=== PATIENT | female | born 1950 | race Caucasian/White ===

== ENCOUNTER 2020-04-09 09:42 | Outpatient (CLI) | payer MEDICARE, SELFPAY ==
[2020-04-09 09:54] LABS: Basophils Percent Auto 0.5 % (0.2-1.2); Eosinophils Absolute Auto 0.1 K/mm3 (0-0.3); Eosinophils Percent Auto 2.1 % (0-4.4); Hematocrit 41.4 % (37.0-47.0); Hemoglobin 13.4 g/dL (12.0-15.0); Immature Granulocyte Absolute 0.03 K/mm3 (0.00-0.031); Immature Granulocyte Percent A 0.5 % (0-0.5); Lymphocytes Absolute Auto 1.27 K/mm3 (0.9-3.2); Lymphocytes Percent Auto 19.4 % (18.3-44.2); Mean Corpuscular HGB Conc 32.4 g/dl (32-36); Mean Corpuscular Volume 92.6 fl (80-100); Mean Platelet Volume 10.2 fl (7.4-10.4); Monocytes Absolute Auto 0.6 K/mm3 (0.1-0.6); Monocytes Percent Auto 8.9 % (2.6-8.5); Neutrophils Absolute Auto 4.5 K/mm3 (1.3-6.7); Neutrophils Percent Auto 68.6 % (45.5-73.1); Platelet Count Result 264 k/mm3 (150-375); Red Blood Count 4.47 M/mm3 (4.2-5.4); Red Cell Distribution Width 13.1 % (11.5-14.5); White Blood Count 6.5 K/mm3 (4.5-10.0)
[2020-04-09 09:57] LABS: Blood Urea Nitrogen 13 mg/dL (8-26); Carbon Dioxide 30 mmol/L (22-30); Chloride 99 mmol/L (98-109); Estimated Glomerular Filt Rate > 60; Glucose 81 mg/dL (70-105); Potassium 4.3 mmol/L (3.5-4.9); Sodium 137 mmol/L (138-146)
[2020-04-09 11:31] LABS: Alanine Aminotransferase 39 U/L (4-35); Albumin Level 4.1 g/dL (3.5-5.1); Alkaline Phosphatase 80 U/L (38-126); Aspartate Amino Transferase 37 U/L (14-36); Bilirubin,Total 0.3 mg/dL (0.2-1.3); Blood Urea Nitrogen 13 mg/dL (7-17); Calcium 9.4 mg/dL (8.4-10.2); Carbon Dioxide 29 mmol/L (22-30); Chloride 101 mmol/L (98-107); Estimated Glomerular Filt Rate > 60; Glucose 79 mg/dL (65-105); Potassium 4.5 mmol/L (3.4-5.0); Sodium 136 mmol/L (137-145)
== END 2020-04-09 09:43 | disposition home or self-care (01) ==
LOC: ANHLAB 09:45
PROVIDERS: Visit Provider Internal Medicine Hematology & Oncology
DX: C50.912 Malignant neoplasm of unspecified site of left female breast (principal)
CPT/HCPCS: 36415; 80048; 80053; 85025

== ENCOUNTER 2020-07-09 11:03 | Outpatient (CLI) | payer MEDICARE, SELFPAY ==
[2020-07-09 11:21] LABS: Basophils Percent Auto 0.5 % (0.2-1.2); Eosinophils Absolute Auto 0.1 K/mm3 (0-0.3); Eosinophils Percent Auto 2.2 % (0-4.4); Hematocrit 40.1 % (37.0-47.0); Hemoglobin 13.3 g/dL (12.0-15.0); Immature Granulocyte Absolute 0.03 K/mm3 (0.00-0.031); Immature Granulocyte Percent A 0.5 % (0-0.5); Lymphocytes Absolute Auto 1.05 K/mm3 (0.9-3.2); Lymphocytes Percent Auto 16.5 % (18.3-44.2); Mean Corpuscular HGB Conc 33.2 g/dl (32-36); Mean Corpuscular Hemoglobin 30.4 pg (26-34); Mean Corpuscular Volume 91.8 fl (80-100); Mean Platelet Volume 9.7 fl (7.4-10.4); Monocytes Absolute Auto 0.5 K/mm3 (0.1-0.6); Monocytes Percent Auto 7.5 % (2.6-8.5); Neutrophils Absolute Auto 4.6 K/mm3 (1.3-6.7); Neutrophils Percent Auto 72.8 % (45.5-73.1); Platelet Count Result 249 k/mm3 (150-375); Red Blood Count 4.37 M/mm3 (4.2-5.4); Red Cell Distribution Width 12.4 % (11.5-14.5); White Blood Count 6.4 K/mm3 (4.5-10.0)
[2020-07-09 12:24] LABS: Alanine Aminotransferase 18 U/L (4-35); Albumin Level 4.2 g/dL (3.5-5.1); Alkaline Phosphatase 71 U/L (38-126); Anion Gap 8 mmol/L (8-16); Aspartate Amino Transferase 28 U/L (14-36); Bilirubin,Total 0.2 mg/dL (0.2-1.3); Blood Urea Nitrogen 13 mg/dL (7-17); Calcium 9.6 mg/dL (8.4-10.2); Carbon Dioxide 29 mmol/L (22-30); Chloride 99 mmol/L (98-107); Estimated Glomerular Filt Rate > 60; Glucose 61 mg/dL (65-105); Potassium 4.8 mmol/L (3.4-5.0); Sodium 136 mmol/L (137-145)
[2020-07-12 06:09] LABS: CA 27.29 11 U/mL (<38)
== END 2020-07-09 11:04 | disposition home or self-care (01) ==
LOC: ANHLAB 11:06
PROVIDERS: Visit Provider Internal Medicine Hematology & Oncology
DX: C50.912 Malignant neoplasm of unspecified site of left female breast (principal)
CPT/HCPCS: 36415; 80053; 85025; 86300

== ENCOUNTER 2020-10-07 11:21 | Outpatient (CLI) | payer MEDICARE, SELFPAY ==
[2020-10-07 11:41] LABS: Basophils Percent Auto 0.4 % (0.2-1.2); Eosinophils Absolute Auto 0.2 K/mm3 (0-0.3); Eosinophils Percent Auto 2.1 % (0-4.4); Hematocrit 38.2 % (37.0-47.0); Hemoglobin 12.9 g/dL (12.0-15.0); Immature Granulocyte Absolute 0.05 K/mm3 (0.00-0.031); Immature Granulocyte Percent A 0.7 % (0-0.5); Lymphocytes Absolute Auto 1.25 K/mm3 (0.9-3.2); Lymphocytes Percent Auto 17.3 % (18.3-44.2); Mean Corpuscular HGB Conc 33.8 g/dl (32-36); Mean Corpuscular Hemoglobin 30.6 pg (26-34); Mean Corpuscular Volume 90.5 fl (80-100); Mean Platelet Volume 9.9 fl (7.4-10.4); Monocytes Absolute Auto 0.7 K/mm3 (0.1-0.6); Neutrophils Absolute Auto 5.1 K/mm3 (1.3-6.7); Neutrophils Percent Auto 70.5 % (45.5-73.1); Platelet Count Result 236 k/mm3 (150-375); Red Blood Count 4.22 M/mm3 (4.2-5.4); Red Cell Distribution Width 12.5 % (11.5-14.5); White Blood Count 7.2 K/mm3 (4.5-10.0)
[2020-10-07 13:52] LABS: Alanine Aminotransferase 66 U/L (4-35); Alkaline Phosphatase 105 U/L (38-126); Anion Gap 6 mmol/L (8-16); Aspartate Amino Transferase 58 U/L (14-36); Bilirubin,Total 0.3 mg/dL (0.2-1.3); Blood Urea Nitrogen 16 mg/dL (7-17); Calcium 9.5 mg/dL (8.4-10.2); Carbon Dioxide 30 mmol/L (22-30); Chloride 100 mmol/L (98-107); Estimated Glomerular Filt Rate > 60; Glucose 82 mg/dL (65-105); Potassium 4.7 mmol/L (3.4-5.0); Sodium 136 mmol/L (137-145)
[2020-10-10 05:14] LABS: CA 15-3 7 U/mL (<32)
== END 2020-10-07 11:22 | disposition home or self-care (01) ==
PROVIDERS: Visit Provider Internal Medicine Hematology & Oncology
DX: C50.912 Malignant neoplasm of unspecified site of left female breast (principal)
CPT/HCPCS: 36415; 80053; 85025; 86300

== ENCOUNTER 2021-01-02 12:39 | Outpatient (CLI) | payer MEDICARE, SELFPAY ==
[2021-01-02 12:58] LABS: Basophils Absolute Auto 0.1 K/mm3 (0.0-0.1); Basophils Percent Auto 0.7 % (0.2-1.2); Eosinophils Absolute Auto 0.1 K/mm3 (0-0.3); Eosinophils Percent Auto 1.3 % (0-4.4); Hemoglobin 13.2 g/dL (12.0-15.0); Immature Granulocyte Absolute 0.03 K/mm3 (0.00-0.031); Immature Granulocyte Percent A 0.4 % (0-0.5); Lymphocytes Percent Auto 21.2 % (18.3-44.2); Mean Corpuscular Hemoglobin 29.9 pg (26-34); Mean Corpuscular Volume 90.7 fl (80-100); Mean Platelet Volume 10.3 fl (7.4-10.4); Monocytes Absolute Auto 0.5 K/mm3 (0.1-0.6); Monocytes Percent Auto 6.4 % (2.6-8.5); Platelet Count Result 268 k/mm3 (150-375); Red Blood Count 4.41 M/mm3 (4.2-5.4); Red Cell Distribution Width 12.6 % (11.5-14.5); White Blood Count 7.1 K/mm3 (4.5-10.0)
[2021-01-02 16:44] LABS: Alanine Aminotransferase 36 U/L (4-35); Albumin Level 4.2 g/dL (3.5-5.1); Alkaline Phosphatase 83 U/L (38-126); Anion Gap 6 mmol/L (8-16); Aspartate Amino Transferase 46 U/L (14-36); Bilirubin,Total 0.3 mg/dL (0.2-1.3); Blood Urea Nitrogen 18 mg/dL (7-17); Carbon Dioxide 28 mmol/L (22-30); Chloride 104 mmol/L (98-107); Estimated Glomerular Filt Rate > 60; Glucose 86 mg/dL (65-105); Potassium 4.8 mmol/L (3.4-5.0); Sodium 138 mmol/L (137-145)
[2021-01-02 19:09] LABS: Hepatitis B Surface Antigen Negative (Negative)
[2021-01-02 19:15] LABS: HAV RESULT Negative (Negative); Hepatitis B Core IgM Result Negative (Negative)
[2021-01-02 19:27] LABS: Hepatitis C Virus Antibody Negative (Negative)
== END 2021-01-02 12:40 | disposition home or self-care (01) ==
PROVIDERS: Visit Provider Internal Medicine Hematology & Oncology
DX: C50.912 Malignant neoplasm of unspecified site of left female breast (principal); R79.89 Other specified abnormal findings of blood chemistry
CPT/HCPCS: 36415; 80053; 80074; 85025

== ENCOUNTER 2022-08-04 21:36 | Emergency (ER) | payer MEDICARE, SELFPAY ==
[2022-08-04 21:45] VITALS: BP 166/87; PULSE 74; RESP 16; TEMP 36.8; O2SAT 100
--- NOTE | 2022-08-04 22:35 | PC.NURSE ---
no answer at triage x1
--- NOTE | 2022-08-04 22:52 | PC.NURSE ---
no answer at triage
== END 2022-08-04 22:35 | disposition left against medical advice (07) ==
DX: R00.0 Tachycardia, unspecified (principal)
CPT/HCPCS: 99199

== ENCOUNTER 2024-09-16 11:10 | Emergency (ER) | payer MEDICARE, SELFPAY ==
--- NOTE | ~2024-09-16 | CT_ITS ---
CT abdomen pelvis w con Ordering provider: Quang Arias MD History: 74 years Female with . diarrhea, weakness . Comparison: None. Technique: CT abdomen and pelvis with IV and without oral contrast. Automated exposure control and it erative reconstruction technique were employed. The dose-length product was 587.43 mGy-cm. 100 mL Omn ipaque 350 was given IV. Findings: VISUALIZED LOWER CHEST: Dependent atelectatic changes. UPPER ABDOMINAL ORGANS: Liver: Borderline hepatomegaly. Gallbladder: Contracted. Spleen: Normal.. Benign calcifications. Stomach/duodenum: Normal. Pancreas: Normal. Adrenals: Slightly prominent left adrenal gland. Kidneys: Tiny cyst in the left kidney midpole. PELVIC ORGANS: The bladder shows minimal thickening in the anterior wall. Evaluation for cystitis adv ised. BOWEL AND MESENTERY: Colon: No evidence of diverticulitis. Slight thickening of the wall of the sigmoid colon is seen whic h may indicate colitis. Follow-up advised. Fluid content is seen in the large bowel which may indicat e diarrhea. Normal appendix. Small Bowel: Normal. No obstruction. Peritoneum/mesentery: No free air or free fluid. No mesenteric lymphadenopathy. RETROPERITONEUM: Mild atheromatous disease of the abdominal aorta. No retroperitoneal lymphadenopat hy. MUSCULOSKELETAL: Superficial soft tissues: The superficial soft tissues are normal. Bones: Age appropriate degenerative changes of the spine. IMPRESSION: 1. No evidence of appendicitis, diverticulitis or intestinal obstruction. 2. Fluid content in the colon which may indicate that area. 3. Slight thickening of the wall of the sigmoid colon. Colitis is possible. Follow-up advised. Reviewed, dictated and finalized at location A. IMPRESSION: 1. No evidence of appendicitis, diverticulitis or intestinal obstruction. 2. Fluid content in the colon which may indicate that area. 3. Slight thickening of the wall of the sigmoid colon. Colitis is possible. Fo llow-up advised.
--- NOTE | ~2024-09-16 | CT_ITS ---
CT brain wo con Ordering provider: Quang Arias MD History: 74 years Female with . AMS . Comparison: None. Technique: CT of the head without contrast. Radiation reduction technique utilized.The dose-length product was 605.33 mGy-cm. FINDINGS: BRAIN PARENCHYMA AND CSF SPACES: Mild leukoaraiosis and diffuse cortical atrophy. Mild atheromatous d isease. No midline shift, mass effect or hemorrhage. The brain parenchyma and CSF spaces are otherwise norm al. VISUALIZED PARANASAL SINUSES: Well aerated. MASTOIDS: Well aerated. BONES: The bones appear intact. SOFT TISSUES: Visualized nasopharynx is normal. Superficial soft tissues are normal. IMPRESSION: No acute intracranial findings. Reviewed, dictated and finalized at location A.
[2024-09-16 11:14] VITALS: BP 132/80; PULSE 78; RESP 14; TEMP 36.5; O2SAT 99
[2024-09-16 12:53] VITALS: PULSE 87
[2024-09-16 13:00] VITALS: BP 132/71; PULSE 67; RESP 20; O2SAT 100
--- NOTE | 2024-09-16 13:14 | ED.GENADULT ---
HPI - General Adult General Chief complaint: Weakness Stated complaint: fever, confusion, falls Time Seen by Provider: 09/16/24 12:28 History of Present Illness HPI narrative: 74 old female presenting to the emergency department for evaluation for diarrhea and confusion. Last night patient was having frequent diarrhea but patient was also going in and taking zolpidem and alprazolam instead of Lomotil. Family states the patient was more confused last night he was even mildly confused this morning. They feel she is more alert appropriate now. Patient has not had any alprazolam or zolpidem today. Patient denies any current abdominal pain. Patient reports last night she was feeling kind achy but states she does feel improved. Related Data Home Medications Medication Instructions Recorded Confirmed venlafaxine 37.5 mg 37.5 mg PO DAILY 02/28/20 07/23/24 capsule,extended release 24 hr (Effexor XR) famotidine 10 mg tablet 10 mg PO DAILY 11/08/23 07/23/24 iodine (kelp) tablet PO 11/08/23 07/23/24 magnesium glycinate 100 mg (as 100 mg PO DAILY 11/08/23 07/23/24 glycinate) tablet Allergies Allergy/AdvReac Type Severity Reaction Status Date / Time codeine Allergy Itching Verified 09/04/24 09:56 cholecalciferol (vitamin D3) AdvReac Severe Chills Verified 09/04/24 09:56 [From Vitamin D3] Gas X Allergy Intermediate Unknown Uncoded 09/04/24 09:56 Review of Systems Review of Systems: All systems reviewed & are unremarkable except as noted in HPI and below PMFSH Past Medical History Medical History Anxiety Depression Exocrine pancreatic insufficiency Gastritis HTN (hypertension) Hyperlipidemia Family History Family History Father Cerebrovascular accident Prostate carcinoma Hypertension Heart problem Mother Congestive heart failure Grandparent Colon cancer Paternal Grandfather in his 60's Breast cancer Paternal Grandmother in her 60's Sibling Cerebrovascular accident Brother Lung cancer Brother Prostate carcinoma Brother Hypercholesteremia Brother Hypertension Brother Arrhythmia Brother Grandparent Hypertension Social History Social History Smoking packs per day: 1 Smoking cigarettes per day: 20.0 Years smoked: 15 Smoking pack-years: 15.00 Smoking status: Former smoker Tobacco type: cigarettes Additional smoking assessment comments: quit over 40 years ago Lack of Transportation: No Lack of Food: Never True Current Housing: I Have Housing Concerned About Future Housing: No Difficulty Paying Gas/Electric Bills: No Difficulty Paying for Meds: No Currently Unemployed: No Education: High School Diploma/GED Difficulty w/ Childcare or Family Care: No Gender identity (if verbalized by the patient): Female Spiritual care concerns: No Agree to blood products: Yes Exam Narrative: APPEARANCE: Well appearing, no pain, no distress, well-nourished. HEAD: normocephalic, atraumatic. EYES: PERRLA/EOMI, conjunctivae clear. NOSE: Normal no drainage EARS:TMS clear with good light reflex. THROAT: Pharynx clear, no exudate. NECK: Supple. No adenopathy, no masses. RESPIRATORY: Airway patent, respirations nonlabored. Clear to auscultation bilaterally, no rales, rhonchi, wheezing. CARDIOVASCULAR: Regular rate and rhythm without murmurs rubs or gallops. ABDOMINAL: Soft, nontender, nondistended, normal bowel sounds MUSCULOSKELETAL: Moves all extremities. Strength/ROM intact, No edema, No calf tenderness. NEURO: Alert. Cranial nerves II through XII intact. Grossly intact SKIN: Warm, dry. Normal Color Course Vital Signs Vital signs: Vital Signs Temperature 97.7 F 09/16/24 11:14 Pulse Rate 78 09/16/24 11:14 Respiratory Rat
[2024-09-16 13:17] LABS: Basophils Percent Auto 0.4 % (0.2-1.2); Eosinophils Absolute Auto 0.1 K/mm3 (0-0.3); Eosinophils Percent Auto 1.7 % (0-4.4); Hematocrit 36.9 % (37.0-47.0); Hemoglobin 12.6 g/dL (12.0-15.0); Immature Granulocyte Absolute 0.02 K/mm3 (0.00-0.031); Immature Granulocyte Percent A 0.4 % (0-0.5); Lymphocytes Absolute Auto 1.08 K/mm3 (0.9-3.2); Lymphocytes Percent Auto 20.3 % (18.3-44.2); Mean Corpuscular HGB Conc 34.1 g/dl (32-36); Mean Corpuscular Hemoglobin 30.8 pg (26-34); Mean Corpuscular Volume 90.2 fl (80-100); Mean Platelet Volume 10.7 fl (7.4-10.4); Monocytes Absolute Auto 0.9 K/mm3 (0.1-0.6); Neutrophils Absolute Auto 3.3 K/mm3 (1.3-6.7); Neutrophils Percent Auto 61.2 % (45.5-73.1); Platelet Count Result 220 k/mm3 (150-375); Red Blood Count 4.09 M/mm3 (4.2-5.4); Red Cell Distribution Width 12.9 % (11.5-14.5); White Blood Count 5.3 K/mm3 (4.5-10.0)
[2024-09-16 13:27] LABS: Prothrombin Time 13.8 Seconds (11.1-14.7)
[2024-09-16 13:28] LABS: Partial Thromboplastin Time 29.7 Seconds (22.3-36.8)
[2024-09-16 13:30] VITALS: BP 114/63; PULSE 73; RESP 15; TEMP 36.9; O2SAT 100
[2024-09-16 13:38] LABS: Alanine Aminotransferase 30 U/L (6-35); Albumin Level 3.9 g/dL (3.5-5.1); Alkaline Phosphatase 127 U/L (38-126); Anion Gap 9 mmol/L (4-12); Aspartate Amino Transferase 40 U/L (14-36); Bilirubin,Total 0.5 mg/dL (0.2-1.3); Blood Urea Nitrogen 8 mg/dL (7-17); Calcium 9.1 mg/dL (8.4-10.2); Carbon Dioxide 25 mmol/L (22-30); Chloride 100 mmol/L (98-107); Estimated CRCL calculation 55 ml/min; Estimated Glomerular Filt Rate > 60; Glucose 82 mg/dL (65-110); Potassium 3.1 mmol/L (3.4-5.0); Sodium 134 mmol/L (137-145)
[2024-09-16] MEDS: POTASSIUM CHLORIDE 20 MEQ PACKET (FOR LIQUID) 40 MEQ PO (14:13)
[2024-09-16 14:37] LABS: Add Urine Microscopic? YES; Appearance Urine Clear (Clear); Bacteria Urine None Seen /hpf; Bilirubin Urine Negative (Negative); Blood Urine Non-Hemolyzed Trace (Negative); Color Urine Yellow (Yellow); Glucose Urine UA Negative (Negative); Ketones Urine 1+ mg/dL (Negative); Leukocyte Esterase Ur 2+ LEU/UL (Negative); Need Manual Microscopic Reviewed; Nitrate Urine Negative (Negative); Non Pathogenic Casts 0-2; Protein Urine Negative (Negative); Specific Grav Ur 1.022 (1.001-1.035); Squamous Epithelial Cell Urine Occasional /hpf (Few); Urobilinogen Urine 0.2 mg/dL (<2.0); WBC Urine 21-50 /hpf (0-3)
== END 2024-09-16 15:38 | disposition home or self-care (01) ==
PROVIDERS: Emergency Provider Emergency Medicine; PCP Family Medicine
DX: R19.7 Diarrhea, unspecified (principal); I10 Essential (primary) hypertension; E78.5 Hyperlipidemia, unspecified; K86.81 Exocrine pancreatic insufficiency; F41.9 Anxiety disorder, unspecified; F32.A Depression, unspecified; Z87.891 Personal history of nicotine dependence; Z79.899 Other long term (current) drug therapy
CPT/HCPCS: 36415; 70450; 74177; 80053; 81001; 85025; 85610; 85730; 87086; 99284; A9270; Q9967

== ENCOUNTER 2024-09-25 09:00 | Outpatient (CLI) | payer MEDICARE, SELFPAY ==
--- NOTE | ~2024-09-25 | DEXA_ITS ---
Bone Density Report Name: MARY KAY GUERRERO Age: 74 Sex: Female Ethnicity: White Date of : 1950 Indication: postmenopausal; screening for osteoporosis; height loss; cancer; hysterectomy; Referring Provider: LIZA WEBB Study: Bone densitometry was performed. Exam Date: September 25, 2024 Accession number: [id number] Bone Density: Region BMD T-score Z-score Classification AP Spine(L1-L4) 1.124 0.7 3.1 Normal Femoral Neck (Left) 0.664 -1.7 0.4 Osteopenia Total Hip (Left) 0.886 -0.5 1.3 Normal Femoral Neck (Right) 0.644 -1.9 0.2 Osteopenia Total Hip (Right) 0.866 -0.6 1.1 Normal Total Hip Mean 0.876 -0.6 1.2 Normal World Health Organization criteria for BMD impression classify patients as: Normal (T-score at or above -1.0), Osteopenia (T-score between -1.0 and -2.5), or Osteoporosis (T-score at or below -2.5). 10-year Fracture Risk(1): Major Osteoporotic Fracture 12% Hip Fracture 2.8% Reported Risk Factors: [place] (), Neck BMD=0.644, BMI=27.6 (1) FRAX(R) Version 3.08. Fracture probability calculated for an untreated patient. Fracture probability may be lower if the patient has received treatment. Clinical Information Provided by Patient: Has used the following medications: Calcium Has the following medical conditions: Cancer, Hysterectomy Patient maximum height was 64 Menopause Age: 48 No regular weight bearing exercise Does not regularly consume dairy products Onset of menses at age 14 Number of children 2 Impression: The patient has low bone mass, based on the Right Femoral Neck T-score. The patient has an estimated ten-year risk of hip fracture of 2.8% and an estimated ten-year risk of major fracture of 12%, based on the WHO FRAX algorithm. Discussion: BONE DENSITY IS LOW AT ONE OR MORE SKELETAL SITES. This patient's lowest T-score is low at one or more skeletal sites. It meets the World Health Organization's (WHO) criteria for ?low bone mass? (T-score between -1.0 and -2.5). The patient's 10-year risk of fracture as calculated by FRAX is less than the threshold where pharmacological therapy is recommended by the National Osteoporosis Foundation (NOF). However, all treatment decisions require clinical judgment and consideration of individual patient factors, including patient preferences, comorbidities, previous drug use, risk factors not captured in the FRAX model (e.g., frailty, falls, vitamin D deficiency, increased bone turnover, interval significant decline in bone density) and possible under or overestimation of fracture risk by FRAX. The patient should follow a healthful lifestyle (good nutrition with adequate calcium and vitamin D, and appropriate weight-bearing exercise). Follow-Up: Consider repeating this study in 2 to 3 years to reassess this patient's status, or sooner if there is some new clinical indication. Reported by: BATSHEVA on 09/25/2024 9:27:00 AM. Reviewed, dictated and finalized at location AGary WIGGINS
== END 2024-09-25 09:01 | disposition home or self-care (01) ==
LOC: ANHIMG 09:01
PROVIDERS: PCP Family Medicine; Visit Provider Family Medicine
DX: M85.89 Other specified disorders of bone density and structure, multiple sites (principal); E78.5 Hyperlipidemia, unspecified; I10 Essential (primary) hypertension; F32.9 Major depressive disorder, single episode, unspecified; F41.9 Anxiety disorder, unspecified; G47.00 Insomnia, unspecified; Z76.89 Persons encountering health services in other specified circumstances; Z78.0 Asymptomatic menopausal state
CPT/HCPCS: 77080

== ENCOUNTER → 2025-04-09 10:40 | Outpatient (CLI) | payer MEDICARE, SELFPAY ==
--- NOTE | ~2025-04-09 | XR_ITS ---
EXAMINATION: XR foot LT min 3V DATE: 04/09/2025 11:40 INDICATION: Primary osteoarthritis TECHNIQUE: Dorsoplantar, oblique and lateral views of the left foot were obtained. COMPARISON: None. FINDINGS: The bowel with healed distal left fibular fracture with lateral plate and screw fixation. Alignment i s normal. No acute fracture. Severe osteoarthritis at the first metatarsophalangeal joint. Moderate o steoarthritis at the first tarsal metatarsal joint and mild osteoarthritis at the ankle and many of t he remaining joints in the mid and forefoot. Moderate-sized plantar calcaneal spur. Soft tissues are unremarkable. No ankle joint effusion. IMPRESSION: 1. Internal fixation of an old healed fractures of the left lateral malleolus which is near-anatomic alignment. No acute osseous abnormality. 2. 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 Reviewed, dictated and finalized at location A. IMPRESSION: 1. Internal fixation of an old healed fractures of the left lateral malleolus w hich is near-anatomic alignment. No acute osseous abnormality. 2. 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
--- NOTE | ~2025-04-09 | XR_ITS ---
EXAMINATION: XR shoulder LT min 2V DATE: 04/09/2025 11:39 INDICATION: Left shoulder pain TECHNIQUE: AP internally and externally rotated, AP oblique externally rotated and transscapular Y vi ews of the left shoulder were obtained. COMPARISON: None FINDINGS: 40 degree upper thoracic levoscoliosis with severe cervical and moderate thoracic spondylosis. Normal alignment at the left shoulder. No fracture. Mild left glenohumeral and moderate acromioclavicular o steoarthritis. There is cystic change near the middle facet of the greater tuberosity which could be related to chronic rotator cuff disease. Couple small surgical clips at the left axilla. Soft tissues are otherwise unremarkable. Visualized portions of the lungs are clear. IMPRESSION: 1. Mild left glenohumeral and moderate Acromio clavicular osteoarthritis. 2. Cystic change near the middle facet of the greater tuberosity which could be related to chronic ro tator cuff disease. 3. 40 degree upper thoracic levoscoliosis with severe cervical and moderate thoracic spondylosis. Reviewed, dictated and finalized at location A. IMPRESSION: 1. Mild left glenohumeral and moderate Acromio clavicular osteoarthritis. 2. Cystic change near the middle facet of the greater tuberosity which could be related to chronic rotator cuff disease. 3. 40 degree upper thoracic levoscoliosis with severe cervical and moderate tho racic spondylosis.
--- OUTSIDE RECORDS SUMMARY | 2025-04-09 11:04 | XMS_ITS ---
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 Repeat in 10 years. Hyperlipidemia 05/01/2009 Overview (05/01/2009): Mild--normal LDL Symptomatic menopausal or female climacteric sta salvador 04/27/2007 Anxiety state 09/21/2005 Status post bilateral breast implants Breast implant rupture Current Treatment and Therapy Plans No current plan information found. Past Treatment and Therapy Plans No past plan information found. Lifetime Dose Tracking * Chemical Lifetime Dose Automatic Entry Manual Entr y Effective Dose 23.2 mSv 23.2 mSv 0 mSv Total DLP 1,565.66 DLP 1,565.66 DLP 0 DLP CTDIvol Max 46.27 mGy 46.27 mGy 0 mGy CTDIvol Min 25.3 mGy 25.3 mGy 0 mGy Resolved Problems Problem Noted Date Diagnosed Date Resolved Date Abnormal cardiovascular stress test 08/24/2023 09/01/2023 Primary osteoarthritis of right knee 08/25/2021 09/04/2023 Mammogram declined 08/15/2017 0 Sprain of unspecified site of back 11/04/2006 04/23/2010 Routine general medical exam ination at a health care facility 05/05/2006 06/10/2011 Decreased libido 05/05/2006 04/23/2010 Abnormal weight gain 09/23/2005 010 Carpal tunnel syndrome 09/21/200507/19 Depressive disorder, not elsewhere classified 09/21/20 05 06/10/2011 Herpetic gingivostomatitis 09/21/2005 0 05/13/2008 Myalgia and myositis, unspecified 09/21/2005 05/13/2008 Diverticulitis of colon (wit hout mention of hemorrhage)(562.11) 09/21/2005 08/22/2020 Edema 09/21/2005 04/23/2010 PLANTAR FIBROMATOSIS 09/21/2005 012 S/P hysterectomy 11/28/1992 06/10/2011
--- OUTSIDE RECORDS SUMMARY | 2025-04-09 11:04 | XMS_ITS | Clinical Summary ---
Author Organization [facility] Address [address] [place] [address] Care Team Providers Care Accounting Manager Name Role Phone Sandor Romero MD Primary Care Provider [phone] Allergies Active Allergy Reactions Criticality Noted Date Comments Betadine Perineal Wash Itching Low 07/03/2024 Burning sensation Cholecalciferol (Vitamin D3) Other (See Comments) Medium 01/16/2020 Aches and pains Codeine Rash Medium 10/22/2005 Simethicone Bradycardia Medium 07/12/2023 Unclassified Drug Other (See Comments) 07/03/20 24 Premarin causing flu like symptoms Wool Rash Medium 01/16/2020 Medications OTHER Take by mouth daily. Tumeric powder, 1/2 tsp. daily Active MAGNESIUM GLUCONATE ORAL Take by mouth. Active ALPRAZolam (XANAX) 0.25 mg tabletIndicatio ns:Anxiety state TAKE 1 TO 2 TABLETS BY MOUTH AT BEDTIME FOR SLEEP Strength: 0.25 mg 60 Tablet 5 06/07/20 23 Active zolpidem (AMBIEN) 10 mg tabletIndicatio ns:Invasive ductal carcinoma of breast, female, left (CMS/HCC),Insom nora, unspecified type Take 1 tablet (10 mg) by mouth every night as needed for insomnia 30 Tablet 3 07/21/20 23 Active fluocinolone (SYNALAR) 0.01 % Solution APPLY TOPICALLY TO THE AFFECTED AREA TWICE DAILY 60 mL 10/06/20 23 Active pantoprazole (PROTONIX) 40 mg Tablet, Delayed Release (E.C.) TAKE 1 TABLET(40 MG) BY MOUTH DAILY 30 Tablet 11 04/17/20 24 Active atenoloL (TENORMIN) 50 mg tablet Take 1 Tablet (50 mg) by mouth daily. 90 Tablet 04/17/20 24 Active atorvastatin (LIPITOR) 20 mg tablet Take 1 Tablet (20 mg) by mouth daily. 90 Tablet 04/17/20 24 Active famotidine (PEPCID) 20 mg tablet Take 20 mg by mouth 2 times daily. Active dicyclomine HCl (DICYCLOMINE ORAL) Take by mouth. Active venlafaxine (EFFEXOR XR) 37.5 mg Extended Release 24 hour capsuleIndicati ons:Invasive ductal carcinoma of breast, female, left (CMS/HCC),Hot flashes due to menopause TAKE 1 CAPSULE(37.5 MG) BY MOUTH DAILY 90 Capsule 03/21/20 25 Active venlafaxine (EFFEXOR XR) 37.5 mg Extended Release 24 hour capsuleIndicati ons:Invasive ductal carcinoma of breast, female, left (CMS/HCC),Hot flashes due to menopause TAKE 1 CAPSULE(37.5 MG) BY MOUTH DAILY 90 Capsule 12/24/19 25 025 Discontinued Active Problems Patient Care Coordination No te Formatting of this note migh t be different from the original. Primary Care: Jimmy Balderas MD Referring Provider: Jimmy Balderas MD [address] [place] [phone] Other: Dr Adriana Wilkinson MD Problem Noted [...] post bilateral breast implants Breast implant rupture Resolved Problems Problem Noted Date Diagnosed Date [...] syndrome 09/21/200507/19 Depressive disorder, not elsewhere classified 09/21/2006/10/2011 Herpetic gingivostomatitis 09/21/2005 0 05/13/2008 Myalgia and myositis, unspecified 09/21/2005 05/13/2008 Diverticulitis of colon (wit hout mention of hemorrhage)(562.11) 09/21/2005 08/22/2020 Edema 09/21/2005 04/23/2010 PLANTAR FIBROMATOSIS 09/21/2005 012 S/P hysterectomy 11/28/1992 06/10/2011 Encounters Date Type Department Care Team Description 03/21/2025 Refill [facility] [address] [place] [phone] Kimberly Naranjo MD Invasive ductal carcinoma of breast, female, left (CMS/HCC); Hot flashes due to menopause 02/18/2025 Chart Note [facility] [address] [place] [phone] Fernanda Cardona RN 02/06/2025 10:21 AM CDT - 02/06/2025 11:59 PM CDT Hospital Encounter [facility] [address] [place] [phone] Adriana Wilkinson MD Cole, Sara E, PA Discharge Disposition: Home or Self Care 01/15/2025 External Device Data STL ABSTRACTION Provider, Abstract from Last 3 Months Immunizations Immunization Administration Dates Next Due (ADACEL/BOOSTRIX)(10 YR UP) TDAP VACCINE, 0.5ML, IM 07/19/2012 (PFIZER)(12 YR UP) COVID-19 VACCINE - EMERGENCY USE AUTHORIZATION, MRNA, [id number](PF) 30 MCG/0.3 ML IM SUSP 04/08/2022,02/15/2021,01/25/2021 (PREVNAR 20)(6 WKS UP) PNEUM OCOCCAL CONJUGATE VACCINE 20-VALENT (PCV20), POLYSACCHARIDE [id number] CONJUGATE, ADJUVANT 0.5 ML (PF) IM 08/30/2022 INFLUENZA VACCINE HIGH DOSE QUADRIVALENT 65 YR UP PF IM 09/01/2023,08/25/2021,07/12/2020 Influenza Seasonal Unspecifi ed Formulation IM 08/28/2022,08/22/2014,10/02/2012,08/09 Family History Medical History Relation Name Comments Lung Cancer Brother 1 73 Cancer Brother 2 70 prostate Heart Disease Brother 2 70 arrhythmia, pa cemaker heart valve High Cholesterol Brother 2 70 Hypertension Brother 2 70 Stroke Brother 2 70 Stroke Father Heart Disease Mother CHF Colon Cancer Paternal Grandfather 60's Breast Cancer Paternal Grandmother 60's ? age Relation Name Status Comments Brother 1 73 Brother 2 70 Alive Father (Age 81) Mother (Age 103) Paternal Grandfather 60's Paternal Grandmother 60's Social History Tobacco Use Types Packs/Day Years Used Date Smoking Tobacco: Former Cigarettes 0.5 15 0 02/28/1971 - 02/28/1986 Smokeless Tobacco: Never Tobacco Cessation:Counseling Given: Not Answered Alcohol Use Standard Drinks/Week Comments No 0 (1 standard drink = 0.6 oz pur e alcohol) Financial Resource Strain Answer Date R ecorded How hard is it for you to pa y for the very basics like food, housing, medical care, and heating? Not hard at all 08/30/2022 Food Insecurity Answer Date Recorded In the past 12 months, have you worried that your food would run out before you had money to buy more? Never true 08/30/2022 In the past 12 months, did y ou run out of food and didn't have money to buy more? Never true 08/30/2022 Transportation Needs Answer Date Record ed In the past 12 months, has l ack of transportation kept you from medical appointments or from getting medications? No 08/30/2022 Lack of Transportation (Non-Medical) Not on file 08/30/2022 Feeling Safe Answer Date Recorded Are you in a relationship wi th someone who hurts you emotionally and/or physically? 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 Gender Identity Not on file Sexual Orientation Not on file Occupation Industry Job Start Date Job End Date Not on file Not on file Not on file Not on file Last Filed Vital Signs Vital Sign Reading Time Taken Comments Blood Pressure 110/50 07/04/2024 8:23 AM CDT Pulse 61 07/04/2024 8:23 AM CDT Temperature 36.8 C (98.2 F) 07/04/2024 8:23 AM CDT Respiratory Rate 16 07/04/2024 8:23 AM CDT Oxygen Saturation 99% 07/04/2024 8:23 AM CDT Inhaled Oxygen Concentration - - Weight 70.1 kg (154 lb 8 oz) 07/03/2024 5:08 AM CDT Height 157.5 cm (5' 2 ) 07/03/2024 5:08 AM CDT Body Mass Index 28.26 07/03/2024 5:08 AM CDT Plan of Treatment Upcoming Encounters Date Type Department Care Team (Late st Contact Info) Description 07/15/2025 1:00 PM CDT Office Visit [facility] [address] [place] [phone] Min, Kimberly Cosby MD [address] [place] [address] Health Maintenance Due Date Last Done Comments FIT-DNA Q 3 years 1995 FIT/FOBT Q 1 year 1995 Flex Sig/CT Colonography Q 5 years 1995 ZOSTER VACCINE (1 of 2) 2000 DTAP/TDAP/TD VACCINES (2 - T d or Tdap) 07/19/2022 07/19/2012 INFLUENZA VACCINE (#1) 2024 3, 08/28/2022, 08/25/2021, Additional history exists COVID-19 Vaccine (2023-2 5 season) 2024 04/08/2022, 02/15/2021, 01/25/2021 RSV VACCINE (60+ or ) (1 - 1-dose 75+ series) 2025 OSTEOPOROSIS SCREENING 12/10/2025 , 12/10/2020, 09/14/2017 COLORECTAL SCREENING 01/12/2033 01/12/2023, 01/12/2023, 01/12/2023, Additional history exists Colorectal Cancer Screening 01/12/2033 PNEUMOCOCCAL VACCINE 50+ YEARS Completed 08/30/2022 Medical Devices Implanted Type Area Legal Research Analyst Device Identifier Shelf Expiration Date Model / Serial / Lot Suture Winder Hand Clip Surgiclip Ii Pradip 9.75in [id number] - [id number] Implanted:Qty : 1 on 02/08/2020 by Adriana Wilkinson MD at [facility] Clip Left: Breast [employer] - COVIDIEN 08/27/2024 [id number] / / [id number] Hemostatic Surgicel 2x14in 1950 - [id number] Implanted:Qty : 1 on 02/08/2020 by Adriana Wilkinson MD at [facility] Hemostatic Left: Breast [employer] [id number] 05/27/20241950 / / [id number] Marker Biozorb [id number] Lprfl F0231 - [id number] Implanted:Qty : 1 on 02/08/2020 by Adriana Wilkinson MD at [facility] Other Left: Breast HOLOGIC/SUROS 05/27/2021 [id number] / / [id number] Explanted Type Area Legal Research Analyst Device Identifier Shelf Expiration Date Model / Serial / Lot [place] Silicone Breast Implant Explanted:Qty: 1 on 02/08/2020 by Percy Cano MD at [facility] Left: Breast Description:Implant Ruptured [employer] [place] Silicone Breast Implant Explanted:Qty: 1 on 02/08/2020 by Percy Cano MD at [facility] Right: Breast Description:Implant Ruptured Procedures Procedure Name Priority Date/Time Associated Diagnosis Comments COMPREHENSIVE METABOLIC PANEL Routine 02/06/2025 12:32 PM CDT Invasive ductal carcinoma of breast, female, left (CMS/HCC) CBC WITH DIFFERENTIAL Routine 02/06/2025 12:32 PM CDT Invasive ductal carcinoma of breast, female, left (CMS/HCC) CANCER ANTIGEN 15-3 Routine 02/06/2025 1 2:32 PM CDT Invasive ductal carcinoma of breast, female, left (CMS/HCC) MAMMO 3D ARLENE SCREEN BILAT W OR WO CAD Routine 02/06/2025 10:40 AM CDT Visit for screening mammogram COLONOSCOPY REPORT 01/12/2023 9: 17 AM REAL ESTATE INVESTOR XR DEXA BONE DENSITY AXIAL 1 OR MORE SITES Routine 12/10/2020 1:38 PM REAL ESTATE INVESTOR Aromatase inhibitor use from Last 3 Months or Most Recently Relevant to Health Maintenance Results * CANCER ANTIGEN 15-3 (02/06/2025 12:32 PM CDT) CA 15-3 11 <32 U/mL [facility] Comment: This test was performed using the Siemens (Histros) chemiluminescent method. Values obtained from different assay methods cannot be used interchangeably. CA 15-3 levels, regardless of value, should not be interpreted as absolute evidence of the presence or absence of disease. FASTING:NO FASTING: NO Test Performed at: [facility] [address] [address] Chuck Salcedo MD Blood 02/06/2025 12:3 2 PM CDT 02/06/2025 12:33 PM CDT us Kimberly Naranjo MD CHEMISTRY ORDERABLES Final Re sult [facility] [phone] [facility] [address] [facility] [address] * CBC WITH DIFFERENTIAL (02/06/2025 12:32 PM CDT) WBC 6.0 3.8 - 10.8 Thousand/u L [facility] RBC 4.39 3.80 - 5.10 Million/uL [facility] HEMOGLOBIN 13.5 11.7 - 15.5 g/dL [facility] HEMATOCRIT 40.9 35.0 - 45.0 % [facility] MCV 93.2 80.0 - 100.0 fL [facility] MCH 30.8 27.0 - 33.0 pg [facility] MCHC 33.0 32.0 - 36.0 g/dL [facility] Comment: For adults, a slight decrease in the calculated MCHC value (in the range of 30 to 32 g/dL) is most likely not clinically significant; however, it should be interpreted with caution in correlation with other red cell parameters and the patient's clinical condition. RDW 14.0 11.0 - 15.0 % [facility] PLATELETS 261 140 - 400 Thousand/u L [facility] MPV 11.2 7.5 - 12.5 fL [facility] NEUTROPHIL ABSOLUTE 3,660 1,500 - 7,800 cells/uL [facility] LYMPHOCYTE ABSOLUTE 1,746 850 - 3,900 cells/uL [facility] MONOCYTE ABSOLUTE 402 200 - 950 cells/uL [facility] EOSINOPHIL ABSOLUTE 150 15 - 500 cells/uL [facility] BASOPHILS ABSOLUTE 42 0 - 200 cells/uL [facility] NEUTROPHIL 61 % [facility] LYMPHOCYTES 29.1 % [facility] MONOCYTE 6.7 % [facility] EOSINOPHILS 2.5 % [facility] BASOPHILS 0.7 % [facility] Comment: FASTING:NO FASTING: NO Test Performed at: [facility] [address] [place] [address] Chuck Salcedo MD Blood 02/06/2025 12:3 2 PM CDT 02/06/2025 12:33 PM CDT us Kimberly Naranjo MD HEMATOLOGY ORDERABLES Final R esult [facility] [phone] [facility] [address] [address] * COMPREHENSIVE METABOLIC PANEL (02/06/2025 12:32 PM CDT) GLUCOSE 83 65 - 139 mg/dL [facility] Comment: Non-fasting reference interval BUN 10 7 - 25 mg/dL [facility] CREATININE 0.68 0.60 - 1.00 mg/dL [facility] GFR 91 > OR = 60 mL/min/1. 73m2 [facility] BUN/CREAT RATIO SEE NOTE: 6 - 22 (calc) [facility] Comment: Not Reported: BUN and Creatinine are within reference range. SODIUM 137 135 - 146 mmol/L [facility] POTASSIUM 4.5 3.5 - 5.3 mmol/L [facility] CHLORIDE 103 98 - 110 mmol/L [facility] CO2 26 20 - 32 mmol/L [facility] CALCIUM 9.3 8.6 - 10.4 mg/dL [facility] TOTAL PROTEIN 6.4 6.1 - 8.1 g/dL [facility] ALBUMIN 4.2 3.6 - 5.1 g/dL [facility] GLOBULIN 2.2 1.9 - 3.7 g/dL (calc) [facility] ALBUMIN/GLOBULIN RATIO 1.9 1.0 - 2.5 (calc) [facility] BILIRUBIN TOTAL 0.4 0.2 - 1.2 mg/dL [facility] ALKALINE PHOSPHATASE 105 37 - 153 U/L [facility] AST 21 10 - 35 U/L [facility] ALT 19 6 - 29 U/L [facility] Comment: FASTING:NO FASTING: NO Test Performed at: [facility] [address] [place] [address] Chuck Salcedo MD Blood 02/06/2025 12:3 2 PM CDT 02/06/2025 12:33 PM CDT us Kimberly Naranjo MD CHEMISTRY ORDERABLES Final Re sult [facility] [phone] [facility] [address] [place] [address] * MAMMO 3D ARLENE SCREEN BILAT W OR WO CAD (02/06/2025 10:40 AM CDT) Anatomical Region Laterality Modality Breast Bilateral Mammography 02/06/2025 10:4 0 AM CDT Impressions 02/06/2025 10:58 AM CDT IMPRESSION: 1. Stable bilateral mammogram with no evidence of malignancy OVERALL FINAL ASSESSMENT: BI-RADS CATEGORY 2: Benign findings. RECOMMENDATIONS: 1. Recommend annual mammography. DICTATION LOCATION: [facility] [place] [facility] 02/06/2025 10:58 AM CDT BILATERAL SCREENING DIGITAL MAMMOGRAM WITH 3D TOMOSYNTHESIS AND CAD DATE: 02/06/2025 10:40 AM HISTORY: Routine yearly screening exam. Previous lumpectomy on the left for treatment of breast cancer and previous benign excisional biopsy in the upper-outer right breast. Previous bilateral breast augmentation and subsequent implant removal. TECHNIQUE: Low-dose full-field digital breast tomosynthesis examination was performed of both breasts with 2D and 3D acquisitions. CAD was utilized. COMPARISON: January 2020 through February 2024 BREAST COMPOSITION: There are scattered areas of fibroglandular density. FINDINGS: Bilateral postsurgical changes remain stable. Residual intraparenchymal silicone is again seen in the posterior left breast, unchanged since previous exams. No new mass, architectural distortion or concerning asymmetry has developed within either breast. No suspicious microcalcifications are seen. us Adriana Wilkinson MD MAMMO ORDERABLES Final Result * COLONOSCOPY REPORT (01/12/2023 9:17 AM REAL ESTATE INVESTOR) Narrative Procedure Note Hansa Hinkle MD - 01/12/2023 9:17 AM CST [facility] Endoscopy Patient Name: Madeline Wilson Procedure Date: 01/12/2023 Date of : 1950 Attending MD: Hansa Hinkle MD, Procedure: Colonoscopy Indications: Abdominal pain in the left lower quadrant, Change in bowel habits Providers: Hansa Hinkle MD Referring MD: Jimmy Balderas MD Medicines: Propofol per Anesthesia Complications: No immediate complications. Procedure: Informed consent was obtained for the procedure, including moderate sedation after risks were discussed. Based on the pre-procedure assessment, including review of the patient's medical history, medications, allergies, and review of systems, the patient was deemed to be an appropriate candidate for sedation. A timeout was performed. Continuous ECG monitoring, pulse oximetry, blood pressure monitoring, and direct observation were performed. The Colonoscope was introduced through the anus and advanced to the cecum, identified by appendiceal orifice and ileocecal valve. The colonoscopy was performed without difficulty. The patient tolerated the procedure well. The quality of the bowel preparation was excellent. Estimated Blood Loss: Estimated blood loss: none. Findings: Hemorrhoids were found on perianal exam. A diffuse area of moderate melanosis was found in the transverse colon, in the ascending colon and in the cecum. The sigmoid colon and descending colon were moderately redundant. A single small-mouthed diverticulum was found in the recto-sigmoid colon. No narrowing or evidence of diverticulitis. The exam was otherwise without abnormality on direct and retroflexion views. Impression: - Hemorrhoids found on perianal exam. - Melanosis in the colon. - Redundant colon. - Diverticulosis in the recto-sigmoid colon. - The examination was otherwise normal on direct and retroflexion views. - No specimens collected. Recommendation: - Repeat colonoscopy in 10 years for screening purposes. - High fiber diet indefinitely. Hansa Hinkle MD 01/12/2023 9:17:05 AM This report has been signed electronically. Number of Addenda: [phone] [facility] [place] [address] us Hansa Hinkle MD GI PROCEDURE ORDERABLES Final Result * XR DEXA BONE DENSITY AXIAL 1 OR MORE SITES (12/10/2020 1:38 PM REAL ESTATE INVESTOR) Anatomical Region Laterality Modality Digital Radiogra phy 12/10/2020 1:38 PM REAL ESTATE INVESTOR Narrative 12/10/2020 2:13 PM REAL ESTATE INVESTOR XR DEXA BONE DENSITY AXIAL 1 OR MORE SITES DATE: 12/10/2020 1:38 PM HISTORY: 70 years old Female with post menopausal symptoms. PROCEDURE: Planar images of the lumbar spine and hip(s) using a iPourit DEXA scanner for bone mineral density determination (BMD). Comparison is made with the prior bone density performed 09/14/2017 FINDINGS: Lumbar Spine (L1-L4) 1.250 gm/cm2, T-score: +0.6 Prior: 1.324 gm/cm2, -5.6% change Left femoral neck 0.800 gm/cm2, T-score: -1.7 Prior: 0.966 gm/cm2, -17.2% change Right femoral neck 0.771 gm/cm2, T-score: -1.9 Prior: 0.980 gm/cm2, -21.3% change Comments: None IMPRESSION Osteopenic bone mineral density. STATISTICAL CHANGE: Significant decrease in bone mineral density of the lumbar spine since the prior study. Significant decrease in bone mineral density of the left femoral neck since the prior study. Significant decrease in bone mineral density of the right femoral neck since the prior study. A statistically significant change is defined as a change of greater than 2.5 standard deviations in the least significant difference from the prior study. Least significant differences are defined as follows: Lumbar spine: +/- 0.010 g/cm2 Femoral neck: +/- 0.014 g/cm2 Forearm radius 33%: +/- 0.020 g/cm2 DEFINITIONS: Normal: T-score above -1.0 Osteopenia T-score less than -1.0 and above -2.5 Osteoporosis: T-score < -2.5 FRAX FRACTURE RISK ASSESSMENT: Risk factors: History of fracture 10 Year Probability Of Fracture -Major Osteoporotic: 18.3% -Hip: 3.4% -Comparison population: [place], A major osteoporotic fracture is defined as a fracture of the spine, forearm, hip or shoulder. FOLLOW-UP RECOMMENDATIONS: Patients without high risk factors for osteoporosis: T-score -1.0 to -1.5 - Consider repeat BMD in 5-10 years T-score -1.5 to -2.0 - Consider repeat BMD in 3-5 years T-score -2.0 to - 2.5 - Consider repeat BMD every 2 years Patients on treatment for osteoporosis: 1-2 years after initiation of treatment and every 2 [address] Erasmo Pope DO DICTATION LOCATION: Location 1 - [facility] Procedure Note Erasmo Pope DO - 12/10/2020 XR DEXA BONE DENSITY AXIAL 1 OR MORE SITES DATE: 12/10/2020 1:38 PM HISTORY: 70 years old Female with post menopausal symptoms. PROCEDURE: Planar images of the lumbar spine and hip(s) using a iPourit DEXA scanner for bone mineral density determination (BMD). Comparison is made with the prior bone density performed 09/14/2017 FINDINGS: Lumbar Spine (L1-L4) 1.250 gm/cm2, T-score: +0.6 Prior: 1.324 gm/cm2, -5.6% change Left femoral neck 0.800 gm/cm2, T-score: -1.7 Prior: 0.966 gm/cm2, -17.2% change Right femoral neck 0.771 gm/cm2, T-score: -1.9 Prior: 0.980 gm/cm2, -21.3% change Comments: None IMPRESSION Osteopenic bone mineral density. STATISTICAL CHANGE: Significant decrease in bone mineral density of the lumbar spine since the prior study. Significant decrease in bone mineral density of the left femoral neck since the prior study. Significant decrease in bone mineral density of the right femoral neck since the prior study. A statistically significant change is defined as a change of greater than 2.5 standard deviations in the least significant difference from the prior study. Least significant differences are defined as follows: Lumbar spine: +/- 0.010 g/cm2 Femoral neck: +/- 0.014 g/cm2 Forearm radius 33%: +/- 0.020 g/cm2 DEFINITIONS: Normal: T-score above -1.0 Osteopenia T-score less than -1.0 and above -2.5 Osteoporosis: T-score < -2.5 FRAX FRACTURE RISK ASSESSMENT: Risk factors: History of fracture 10 Year Probability Of Fracture -Major Osteoporotic: 18.3% -Hip: 3.4% -Comparison population: [place], A major osteoporotic fracture is defined as a fracture of the spine, forearm, hip or shoulder. FOLLOW-UP RECOMMENDATIONS: Patients without high risk factors for osteoporosis: T-score -1.0 to -1.5 - Consider repeat BMD in 5-10 years T-score -1.5 to -2.0 - Consider repeat BMD in 3-5 years T-score -2.0 to - 2.5 - Consider repeat BMD every 2 years Patients on treatment for osteoporosis: 1-2 years after initiation of treatment and every 2 [address] Erasmo Pope, DICTATION LOCATION: Location [address] [place] [address] [facility] ORDERA BLES Final Result from Last 3 Months or Most Recently Relevant to Health Maintenance Insurance RX [employer] RX Member Subscriber Plan / Payer (Ef fective 2020-Present) Name:Madeline Wilson Relation to Subscriber:Self Name:Madeline Wilson Payer ID:Not on file Group ID:[id number] Type:RX Medicare Part D Address: [address] [employer] (INTERNAL) [facility] Plans MEDICARE PART A AND B [facility] [id number] Advance Directives For more information, please contact: [phone] Documents on File Type Date Recorded 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 Advance Directive POA 08/18/2017 11:54 AM Advance Directive POA * Full Code (Latest Code Status on File) Date Activated Date Inactivated Comments 07/03/2024 11:34 AM 07/04/2024 3:13 PM * Full Code Date Activated Date Inactivated Comments 07/03/2024 5:22 AM 07/03/2024 11:34 AM * Full Code Date Activated Date Inactivated Comments 09/02/2023 6:57 AM 09/02/2023 10:38 AM * Full Code Date Activated Date Inactivated Comments 01/12/2023 7:09 AM 01/12/2023 11:54 AM * Full Code Date Activated Date Inactivated Comments 02/08/2020 8:57 AM 02/08/2020 11:09 PM Care Teams Accounting Manager Relationship Specialty Start Date End Date Sandor Romero MD [address] [place] [phone] PCP - General Family Practice 06/28/24
--- OUTSIDE RECORDS SUMMARY | 2025-04-09 11:04 | XMS_ITS | Referral Summary ---
Author Organization [facility] Address [address] [place] [address] Care Team Providers Care Central Sterile Technician Name Role Phone Zeferino Arnold MD Primary Care Provider [phone] Allergies Active Allergy Reactions Criticality Noted Date Comments Wool Itching Low 04/05/2024 Medications atenoloL (TENORMIN) 50 mg tablet Take 1 tablet (50 mg total) by mouth daily Active atorvastatin (LIPITOR) 20 mg tablet Take 1 tablet (20 mg total) by mouth daily Active venlafaxine HCl (EFFEXOR XR ORAL) Take by mouth Active zolpidem 10 mg tablet, sublingual Place under the tongue Active ALPRAZolam (XANAX) 0.25 mg tablet Take 1 tablet (0.25 mg total) by mouth nightly as needed for anxiety Active famotidine (PEPCID) 20 mg tablet Take 1 tablet (20 mg total) by mouth 2 (two) times a day Active dicyclomine HCl (BENTYL ORAL) Take by mouth Active Social History Tobacco Use Types Packs/Day Years Used Date Smoking Tobacco: Never Tobacco Cessation:Counseling Given: Not Answered Personal Safety Answer Date Recorded Have you ever been in or are you currently in a harmful physical or emotional relationship or is someone making you feel afraid or unsafe? Denies 04/27/2024 Comments Unknown Sex and Gender Information Value Date Recorded Sex Assigned at Not on file Legal Sex Female 2:42 PM CDT Gender Identity Not on file Sexual Orientation Not on file Last Filed Vital Signs Vital Sign Reading Time Taken Comments Blood Pressure - - Pulse - - Temperature - - Respiratory Rate - - Oxygen Saturation - - Inhaled Oxygen Concentration - - Weight 72.6 kg (160 lb) 04/05/2024 9:19 AM CDT Height 157.5 cm (5' 2 ) 04/05/2024 9:19 AM CDT Body Mass Index 29.26 04/05/2024 9:19 AM CDT Plan of Treatment Not on file Insurance MEDICARE [facility] MEDICARE [facility] Care Teams Central Sterile Technician Relationship Specialty Start Date End Date Zeferino Arnold MD [facility] [address] [address] PCP - General Family Medicine 04/27/24
--- OUTSIDE RECORDS SUMMARY | 2025-04-09 11:04 | XMS_ITS | Clinical Summary ---
Author Organization [facility] Address [address] [place] [address] Care Team Providers Care Solar Sales Estimator Name Role Phone Zeferino Arnold MD Primary Care Provider [phone] Allergies Active Allergy Reactions Criticality Noted Date [...] HCl (BENTYL ORAL) Take by mouth Active Surgical History Surgery Date Site/Laterality Comments UPPER GASTROINTESTINAL ENDOSCOPY COLONOSCOPY HYSTERECTOMY LYMPHADENECTOMY Medical History Medical History Date Comments Irregular heartbeat Chronic gastritis Depression Anxiety Cancer (HCC) Social History Tobacco Use Types Packs/Day Years [...] on file Sexual Orientation Not on file Obstetrics History Last Filed Vital Signs Vital Sign Reading Time Taken Comments Blood Pressure - - Pulse - - Temperature - - Respiratory Rate - - Oxygen Saturation - - Inhaled Oxygen Concentration - - Weight 72.6 kg (160 lb) 04/05/2024 9:19 AM CDT Height 157.5 cm (5' 2 ) 04/05/2024 9:19 AM CDT Body Mass Index 29.26 04/05/2024 9:19 AM CDT Plan of Treatment Health Maintenance Due Date Last Done Comments Colon Cancer Screening-Colonoscopy 1950 Depression Screening 1950 Fall Risk Assessment 1950 Hepatitis C Screening 1950 Hepatitis B Screening 1968 Zoster Vaccine (1 of 2) 2000 Well Visit 65+ 2015 Osteoporosis Screening-Bone Density Scan 12/10/2022 12/10/2020, 12/10/2020, 09/14/2017 Covid-19 Vaccine (7 2023-2 5 season) 2024 09/07/2023, 09/02/2022, 04/08/2022, Additional history exists Influenza Vaccine (#1) 2024 , 09/02/2022, 08/28/2022, Additional history exists DTaP/Tdap/Td Vaccine (3 - Td or Tdap) 11/14/2033 11/14/2023, 07/19/2012 Pneumococcal vaccine 65+ Completed 08/30/2022 Insurance MEDICARE [facility] Member Subscriber Plan / Payer (Ef fective 2023-Present) Name:Madeline Wilson Relation to Subscriber:Self Name:Madeline Wilson Payer ID:[id number] Group ID:Not on file Type:COMMERCIAL Address: [facility] [id number] [id number] MEDICARE [facility] Care Teams Solar Sales Estimator Relationship Specialty Start Date End Date Zeferino Arnold MD [facility] [place] [address] PCP - General Family Medicine 04/27/24
--- OUTSIDE RECORDS SUMMARY | 2025-04-09 11:05 | XMS_ITS | Encounter Summary ---
Author Organization [facility] Address 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 Gender Identity Not on file Sexual Orientation Not on file documented as of this encounter Plan of Treatment Upcoming Encounters Date Type Department Care Team (Late st Contact Info) Description 07/15/2025 1:00 PM CDT Office Visit [facility] Oncology and Hematology [facility] [address] [place] [address] Kimberly Naranjo MD [address] [place] [address] documented as of this encounter Visit Diagnoses Not on filedocumented in this encounter Additional Health Concerns Infection Onset Date Last Indicated Resolved Time R/O C. diff 07/03/2024 07/03/2024 07/04/2024 11:3 0 AM CDT documented as of this encounter Care Teams Lubrication Equipment Servicer Relationship Specialty Start Date End Date Sandor Romero MD [address] [place] [address] PCP - General Family Practice 06/28/24 documented as of this encounter
--- OUTSIDE RECORDS SUMMARY | 2025-04-09 11:05 | XMS_ITS | Encounter Summary ---
Author Organization [facility] Address [address] [place] [address] Care Team Providers Care Commercial Lending Assistant Name Role Phone Sandor Romero MD Primary Care Provider [phone] Encounter Details Date Type Department Care Team (Late st Contact Info) Description 04/25/2002 Outpatient Historical [facility] [place] [address] [facility] [address] [place] [address] DEPRESSIVE DISORDER NEC (Primary Dx) Social History Tobacco Use Types Packs/Day Years Used Date Smoking Tobacco: Never Assessed Comments Unknown Sex and Gender Information Value Date Recorded Sex Assigned at Not on file Legal 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 Gender Identity Not on file Sexual Orientation Not on file documented as of this encounter Plan of Treatment Upcoming Encounters Date Type Department Care Team (Late st Contact Info) Description 07/15/2025 1:00 PM CDT Office Visit [facility] Oncology and Hematology [facility] [address] [place] [address] Kimberly Naranjo MD [address] [facility] [address] [place] [address] documented as of this encounter Visit Diagnoses Diagnosis Depressive disorder, not elsewhere classified- Primary documented in this encounter Additional Health Concerns Infection Onset Date Last Indicated Resolved Time R/O C. diff 07/03/2024 07/03/2024 07/04/2024 11:3 0 AM CDT documented as of this encounter Care Teams Commercial Lending Assistant Relationship Specialty Start Date End Date Sandor Romero MD [address] [place] [address] PCP - General Family Practice 06/28/24 documented as of this encounter
--- OUTSIDE RECORDS SUMMARY | 2025-04-09 11:05 | XMS_ITS | Encounter Summary ---
Author Organization [facility] Address 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 Gender Identity Not on file Sexual Orientation Not on file documented as of this encounter Plan of Treatment Upcoming Encounters Date Type Department Care Team (Late st Contact Info) Description 07/15/2025 1:00 PM CDT Office Visit [facility] Oncology and Hematology [facility] [address] [place] [address] Kimberly Naranjo MD [address] [place] [address] documented as of this encounter Visit Diagnoses Not on filedocumented in this encounter Additional Health Concerns Infection Onset Date Last Indicated Resolved Time R/O C. diff 07/03/2024 07/03/2024 07/04/2024 11:3 0 AM CDT documented as of this encounter Care Teams Felt Cutter Relationship Specialty Start Date End Date Sandor Romero MD [address] [place] [address] PCP - General Family Practice 06/28/24 documented as of this encounter
--- OUTSIDE RECORDS SUMMARY | 2025-04-09 11:05 | XMS_ITS | Encounter Summary ---
Author Organization [facility] Address [address] [place] [address] Care Team Providers Care Freelance Web Designer Name Role Phone Sandor Romero MD Primary Care Provider [phone] [phone] Encounter Details Date Type Department Care Team (Late st Contact Info) Description 07/18/2002 Outpatient Historical [facility] Primary Care - [address] [place] [address] Marshall Lilly Social History Tobacco Use Types Packs/Day Years Used Date Smoking Tobacco: Never Assessed Comments Unknown Sex and Gender Information Value Date Recorded Sex Assigned at Not on file Legal Sex Female 4:28 AM SULPHATE TESTER Gender Identity Not on file Sexual Orientation Not on file documented as of this encounter Plan of Treatment Upcoming Encounters Date Type Department Care Team (Late st Contact Info) Description 07/15/2025 1:00 PM CDT Office Visit [facility] Oncology and Hematology [facility] [address] [place] [address] Kimberly Naranjo MD [address] [place] [address] documented as of this encounter Visit Diagnoses Not on filedocumented in this encounter Additional Health Concerns Infection Onset Date Last Indicated Resolved Time R/O C. diff 07/03/2024 07/03/2024 07/04/2024 11:3 0 AM CDT documented as of this encounter Care Teams Freelance Web Designer Relationship Specialty Start Date End Date Sandor Romero MD [address] [place] [phone] PCP - General Family Practice 06/28/24 documented as of this encounter
--- OUTSIDE RECORDS SUMMARY | 2025-04-09 11:05 | XMS_ITS | Encounter Summary ---
Author Organization [facility] Address [address] [place] [address] Care Team Providers Care Broadcast Field Supervisor Name Role Phone Sandor Romero MD Primary Care Provider [phone] [phone] Encounter Details Date Type Department Care Team (Late Contact Info) Description 12/06/2002 Outpatient Historical [facility] Support [facility] (Adt Cardiology[facility]) [address] [place] [address] Javid Moreno MD NO ADDRESS ON FILE Social History Tobacco Use Types Packs/Day Years Used Date Smoking Tobacco: Never Assessed Comments Unknown Sex and Gender Information Value Date Recorded Sex Assigned at Not on file Legal Sex Female 4:28 AM SIGNALMAN Gender Identity Not on file Sexual Orientation Not on file documented as of this encounter Plan of Treatment Upcoming Encounters Date Type Department Care Team (Late Contact Info) Description 07/15/2025 1:00 PM CDT Office Visit [facility] Oncology [facility] [address] [place] [address] Kimberly Naranjo MD [address] [place] [address] documented as of this encounter Visit Diagnoses Not on filedocumented in this encounter Additional Health Concerns Infection Onset Date Last Indicated Resolved Time R/O C. diff 07/03/2024 07/03/202407/0407/04/2024 11:3 0 AM CDT documented as of this encounter Care Teams Broadcast Field Supervisor Relationship Specialty Start Date End Date Sandor Romero MD [address] [place] [address] PCP - General Family Practice 06/28/24 documented as of this encounter
--- OUTSIDE RECORDS SUMMARY | 2025-04-09 11:05 | XMS_ITS | Encounter Summary ---
Author Organization [facility] Address 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 Gender Identity Not on file Sexual Orientation Not on file documented as of this encounter Plan of Treatment Upcoming Encounters Date Type Department Care Team (Late st Contact Info) Description 07/15/2025 1:00 PM CDT Office Visit [facility] Oncology and Hematology [facility] [address] [place] [address] Kimberly Naranjo MD [address] [place] [address] documented as of this encounter Visit Diagnoses Not on filedocumented in this encounter Additional Health Concerns Infection Onset Date Last Indicated Resolved Time R/O C. diff 07/03/2024 07/03/2024 07/04/2024 11:3 0 AM CDT documented as of this encounter Care Teams Treating Plant Supervisor Relationship Specialty Start Date End Date Sandor Romero MD [address] [place] [address] PCP - General Family Practice 06/28/24 documented as of this encounter
--- OUTSIDE RECORDS SUMMARY | 2025-04-09 11:05 | XMS_ITS | Encounter Summary ---
Author Organization [facility] Address [address] [place] [address] Care Team Providers Care Inspector Scales Name Role Phone Sandor Romero MD Primary Care Provider [phone] [phone] Encounter Details Date Type Department Care Team (Latest Contact Info) Description 03/10/[address] [facility] Balder[facility], Jimmy Gilliam MD NO ADDRESS ON FILE Breast Replaced by Other Means (Primary Dx) Social History Tobacco Use Types Packs/Day Years Used Date Smoking Tobacco: Never Assessed Comments Unknown Sex and Gender Information Value Date Recorded Sex Assigned at Not on file Legal Sex Female 4:28 AM SUPERVISOR SAMPLE PREPARATION Gender Identity Not on file Sexual Orientation Not on file documented as of this encounter Plan of Treatment Upcoming Encounters Date Type Department Care Team (Late st Contact Info) Description 07/15/2025 1:00 PM CDT Office Visit [facility] Oncology and Hematology [facility] [address] [place] [address] Kimberly Naranjo MD [address] [place] [address] documented as of this encounter Visit Diagnoses Diagnosis Breast replaced by other means- Primary documented in this encounter Additional Health Concerns Infection Onset Date Last Indicated Resolved Time R/O C. diff 07/03/2024 07/03/2024 07/04/2024 11:3 0 AM CDT documented as of this encounter Care Teams Inspector Scales Relationship Specialty Start Date End Date Sandor Romero MD [address] [place] [address] PCP - General Family Practice 06/28/24 documented as of this encounter
--- OUTSIDE RECORDS SUMMARY | 2025-04-09 11:05 | XMS_ITS | Encounter Summary ---
Author Organization [facility] Address [address] [place] [address] Care Team Providers Care Mine Production Engineer Name Role Phone Sandor Romero MD Primary Care Provider [phone] Encounter Details Date Type Department Care Team (Late st Contact Info) Description 04/30/2002 Outpatient Historical [facility] [place] [address] [facility] [address] [place] [address] DEPRESSIVE DISORDER NEC (Primary Dx) Social History Tobacco Use Types Packs/Day Years Used Date Smoking Tobacco: Never Assessed Comments Unknown Sex and Gender Information Value Date Recorded Sex Assigned at Not on file Legal 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 Gender Identity Not on file Sexual Orientation Not on file documented as of this encounter Plan of Treatment Upcoming Encounters Date Type Department Care Team (Late st Contact Info) Description 07/15/2025 1:00 PM CDT Office Visit [facility] Oncology and Hematology [facility] [address] [place] [address] Kimberly Naranjo MD [address] [facility] [address] [place] [address] documented as of this encounter Visit Diagnoses Diagnosis Depressive disorder, not elsewhere classified- Primary documented in this encounter Additional Health Concerns Infection Onset Date Last Indicated Resolved Time R/O C. diff 07/03/2024 07/03/2024 07/04/2024 11:3 0 AM CDT documented as of this encounter Care Teams Mine Production Engineer Relationship Specialty Start Date End Date Sandor Romero MD [address] [place] [address] PCP - General Family Practice 06/28/24 documented as of this encounter
--- OUTSIDE RECORDS SUMMARY | 2025-04-09 11:05 | XMS_ITS | Encounter Summary ---
Author Organization [facility] Address [address] [place] [address] Care Team Providers Care Phonograph Mechanic Name Role Phone Sandor Romero MD Primary Care Provider [phone] [phone] Encounter Details Date Type Department Care Team (Late st Contact Info) Description 03/04/2003 Outpatient Historical [facility] Primary Care - [address] [place] [address] Jimmy Balderas MD NO ADDRESS ON FILE Social History Tobacco Use Types Packs/Day Years Used Date Smoking Tobacco: Never Assessed Comments Unknown Sex and Gender Information Value Date Recorded Sex Assigned at Not on file Legal Sex Female 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 Oncology and Hematology [facility] [address] [place] [address] Kimberly Naranjo MD [address] [place] [address] documented as of this encounter Visit Diagnoses Not on filedocumented in this encounter Additional Health Concerns Infection Onset Date Last Indicated Resolved Time R/O C. diff 07/03/2024 07/03/2024 07/04/2024 11:3 0 AM CDT documented as of this encounter Care Teams Phonograph Mechanic Relationship Specialty Start Date End Date Sandor Romero MD [address] [place] [address] PCP - General Family Practice 06/28/24 documented as of this encounter
--- OUTSIDE RECORDS SUMMARY | 2025-04-09 11:05 | XMS_ITS | Encounter Summary ---
Author Organization [facility] Address [address] [place] [address] Care Team Providers Care Patient Safety Coordinator Name Role Phone Sandor Romero MD Primary Care Provider +1 [phone] Encounter Details Date Type Department Care Team (Late st Contact Info) Description 05/11/2002 Outpatient Historical [facility] [place] [address] [facility] [address] [place] [address] DEPRESSIVE DISORDER NEC (Primary Dx) Social History Tobacco Use Types Packs/Day Years Used Date Smoking Tobacco: Never Assessed Comments Unknown Sex and Gender Information Value Date Recorded Sex Assigned at Not on file Legal 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 Female 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 TRANSITION Gender Identity Not on file Sexual Orientation Not on file documented as of this encounter Plan of Treatment Upcoming Encounters Date Type Department Care Team (Late st Contact Info) Description 07/15/2025 1:00 PM CDT Office Visit [facility] Oncology and Hematology [facility] [address] [place] [address] Kimberly Naranjo MD [address] [place] [address] documented as of this encounter Visit Diagnoses Diagnosis Depressive disorder, not elsewhere classified- Primary documented in this encounter Additional Health Concerns Infection Onset Date Last Indicated Resolved Time R/O C. diff 07/03/2024 07/03/2024 07/04/2024 11:3 0 AM CDT documented as of this encounter Care Teams Patient Safety Coordinator Relationship Specialty Start Date End Date Sandor Romero MD [address] [place] [address] PCP - General Family Practice 06/28/24 documented as of this encounter
--- OUTSIDE RECORDS SUMMARY | 2025-04-09 11:05 | XMS_ITS | Encounter Summary ---
Author Organization [facility] Address [address] [place] [address] Care Team Providers Care Director Digital Marketing Name Role Phone Sandor Romero MD Primary Care Provider +1 [phone] Encounter Details Date Type Department Care Team (Late st Contact Info) Description 05/18/2002 Outpatient Historical [place] [address] [facility] [address] [place] [address] DEPRESSIVE DISORDER NEC (Primary Dx) Social History Tobacco Use Types Packs/Day Years Used Date Smoking Tobacco: Never Assessed Comments Unknown Sex and Gender Information Value Date Recorded Sex Assigned at Not on file Legal 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 Female 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 Gender Identity Not on file Sexual Orientation Not on file documented as of this encounter Plan of Treatment Upcoming Encounters Date Type Department Care Team (Late st Contact Info) Description 07/15/2025 1:00 PM CDT Office Visit [facility] Oncology and Hematology [facility] [address] [place] [address] Kimberly Naranjo MD [address] [place] [address] documented as of this encounter Visit Diagnoses Diagnosis Depressive disorder, not elsewhere classified- Primary documented in this encounter Additional Health Concerns Infection Onset Date Last Indicated Resolved Time R/O C. diff 07/03/2024 07/03/2024 07/04/2024 11:3 0 AM CDT documented as of this encounter Care Teams Director Digital Marketing Relationship Specialty Start Date End Date Sandor Romero MD [address] [place] [address] PCP - General Family Practice 06/28/24 documented as of this encounter
--- OUTSIDE RECORDS SUMMARY | 2025-04-09 11:05 | XMS_ITS | Encounter Summary ---
Author Organization [facility] Address [address] [place] [address] Care Team Providers Care Mailing Machine Helper Name Role Phone Sandor Romero MD Primary Care Provider +1 -[phone] Encounter Details Date Type Department Care Team (Latest Contact Info) Description 11/15/2002 Outpatient Historical HIS [facility] Jimmy Balderas MD NO ADDRESS ON FILE BREAST REPLACEMT BY OTHER MEANS (Primary Dx) Social History Tobacco Use Types Packs/Day Years Used Date Smoking Tobacco: Never Assessed Comments Unknown Sex and Gender Information Value Date Recorded Sex Assigned at Not on file Legal Sex Female 4:28 AM VP ANCILLARY Gender Identity Not on file Sexual Orientation Not on file documented as of this encounter Plan of Treatment Upcoming Encounters Date Type Department Care Team (Late st Contact Info) Description 07/15/2025 1:00 PM CDT Office Visit [facility] Oncology and Hematology [facility] [address] [place] [address] Kimberly Naranjo MD [address] [place] [address] documented as of this encounter Visit Diagnoses Diagnosis Breast replaced by other means- Primary documented in this encounter Additional Health Concerns Infection Onset Date Last Indicated Resolved Time R/O C. diff 07/03/2024 07/03/2024 07/04/2024 11:3 0 AM CDT documented as of this encounter Care Teams Mailing Machine Helper Relationship Specialty Start Date End Date Sandor Romero MD [address] [place] [address] PCP - General Family Practice 06/28/24 documented as of this encounter
--- OUTSIDE RECORDS SUMMARY | 2025-04-09 11:05 | XMS_ITS | Encounter Summary ---
Author Organization [facility] Address [address] [place] [address] Care Team Providers Care Rn Homecare Name Role Phone Sandor Romero MD Primary Care Provider +1 -[phone] Encounter Details Date Type Department Care Team (Late st Contact Info) Description 02/04/2005 Outpatient Historical [facility] Primary Care - [address] [place] [address] Jimmy Balderas MD NO ADDRESS ON FILE Social History Tobacco Use Types Packs/Day Years Used Date Smoking Tobacco: Never Assessed Comments Unknown Sex and Gender Information Value Date Recorded Sex Assigned at Not on file Legal Sex Female 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 Gender Identity Not on file Sexual Orientation Not on file documented as of this encounter Plan of Treatment Upcoming Encounters Date Type Department Care Team (Late st Contact Info) Description 07/15/2025 1:00 PM CDT Office Visit [facility] Oncology and Hematology [facility] [address] [place] [address] Kimberly Naranjo MD [address] [place] [address] documented as of this encounter Visit Diagnoses Not on filedocumented in this encounter Additional Health Concerns Infection Onset Date Last Indicated Resolved Time R/O C. diff 07/03/2024 07/03/2024 07/04/2024 11:3 0 AM CDT documented as of this encounter Care Teams Rn Homecare Relationship Specialty Start Date End Date Sandor Romero MD [address] [place] [address] PCP - General Family Practice 06/28/24 documented as of this encounter
--- OUTSIDE RECORDS SUMMARY | 2025-04-09 11:05 | XMS_ITS | Encounter Summary ---
Author Organization [facility] Address [address] [place] [address] Care Team Providers Care Director Motion Picture Name Role Phone Sandor Romero MD Primary Care Provider +1 -[phone] Encounter Details Date Type Department Care Team (Late st Contact Info) Description 12/01/2002 Outpatient Historical [facility] Kaylin Enriquez MD NO ADDRESS ON FILE Er, Authorized P NO ADDRESS ON FILE RESPIRATORY ABNORM NEC (Primary Dx) Social History Tobacco Use Types Packs/Day Years Used Date Smoking Tobacco: Never Assessed Comments Unknown Sex and Gender Information Value Date Recorded Sex Assigned at Not on file Legal Sex Female 4:28 AM NET ARCHITECT Gender Identity Not on file Sexual Orientation Not on file documented as of this encounter Plan of Treatment Upcoming Encounters Date Type Department Care Team (Late st Contact Info) Description 07/15/2025 1:00 PM CDT Office Visit [facility] Oncology and Hematology [facility] [address] [place] [address] Kimberly Naranjo MD [address] [place] [address] documented as of this encounter Visit Diagnoses Diagnosis Other dyspnea and respiratory abnormality- Primary documented in this encounter Additional Health Concerns Infection Onset Date Last Indicated Resolved Time R/O C. diff 07/03/2024 07/03/2024 07/04/2024 11:3 0 AM CDT documented as of this encounter Care Teams Director Motion Picture Relationship Specialty Start Date End Date Sandor Romero MD [address] [place] [address] PCP - General Family Practice 06/28/24 documented as of this encounter
--- OUTSIDE RECORDS SUMMARY | 2025-04-09 11:05 | XMS_ITS | Encounter Summary ---
Author Organization [facility] Address [address] [place] [address] Care Team Providers Care Metal Products Viewer Name Role Phone Sandor Romero MD Primary Care Provider +1 -[phone] Encounter Details Date Type Department Care Team (Late st Contact Info) Description 03/02/2006 Orders Only [facility] Primary Care - [address] [place] [address] Jimmy Balderas MD NO ADDRESS ON FILE Social History Tobacco Use Types Packs/Day Years Used Date Smoking Tobacco: Never Assessed Comments Unknown Sex and Gender Information Value Date Recorded Sex Assigned at Not on file Legal Sex Female 4:28 AM TEA TASTER Gender Identity Not on file Sexual Orientation Not on file documented as of this encounter Plan of Treatment Upcoming Encounters Date Type Department Care Team (Late st Contact Info) Description 07/15/2025 1:00 PM CDT Office Visit [facility] Oncology and Hematology [facility] [address] [place] [address] Kimberly Naranjo MD [address] [place] [address] documented as of this encounter Visit Diagnoses Not on filedocumented in this encounter Additional Health Concerns Infection Onset Date Last Indicated Resolved Time R/O C. diff 07/03/2024 07/03/2024 07/04/2024 11:3 0 AM CDT documented as of this encounter Care Teams Metal Products Viewer Relationship Specialty Start Date End Date [place] [address] [place] [address] PCP - General Family Practice 06/28/24 documented as of this encounter
--- OUTSIDE RECORDS SUMMARY | 2025-04-09 11:05 | XMS_ITS | Encounter Summary ---
Author Organization [facility] Address [address] [place] [address] Care Team Providers Care Pharmacy Intake Technician Name Role Phone Sandor Romero MD Primary Care Provider +1 -[phone] Encounter Details Date Type Department Care Team (Latest Contact Info) Description 08/05/2003 Outpatient Historical HIS [facility] Balderas, Jimmy Gilliam MD NO ADDRESS ON FILE SUDDEN HEARING LOSS NOS (Primary Dx) Social History Tobacco Use Types Packs/Day Years Used Date Smoking Tobacco: Never Assessed Comments Unknown Sex and Gender Information Value Date Recorded Sex Assigned at Not on file Legal Sex Female 4:28 AM TEST TECH Gender Identity Not on file Sexual Orientation Not on file documented as of this encounter Plan of Treatment Upcoming Encounters Date Type Department Care Team (Late st Contact Info) Description 07/15/2025 1:00 PM CDT Office Visit [facility] Oncology and Hematology [facility] [address] [place] [address] Kimberly Naranjo MD [address] [place] [address] documented as of this encounter Visit Diagnoses Diagnosis Sudden hearing loss, unspecified- Primary documented in this encounter Additional Health Concerns Infection Onset Date Last Indicated Resolved Time R/O C. diff 07/03/2024 07/03/2024 07/04/2024 11:3 0 AM CDT documented as of this encounter Care Teams Pharmacy Intake Technician Relationship Specialty Start Date End Date Sandor Romero MD [address] [place] [address] PCP - General Family Practice 06/28/24 documented as of this encounter
--- OUTSIDE RECORDS SUMMARY | 2025-04-09 11:05 | XMS_ITS | Encounter Summary ---
Author Organization [facility] Address [address] [place] [address] Care Team Providers Care General Medical Practitioner Name Role Phone Sandor Romero MD Primary Care Provider +1 -[phone] Encounter Details Date Type Department Care Team (Late st Contact Info) Description 04/18/2002 Outpatient Historical HIS [facility] [place] [address] [place] [address] RECURR DEPR PSYCHOS-MOD (CMS/HCC) (Primary Dx) Social History Tobacco Use Types Packs/Day Years Used Date Smoking Tobacco: Never Assessed Comments Unknown Sex and Gender Information Value Date Recorded Sex Assigned at Not on file Legal Sex Female 4:28 AM ADMISSION SPECIALIST Gender Identity Not on file Sexual Orientation Not on file documented as of this encounter Plan of Treatment Upcoming Encounters Date Type Department Care Team (Late Contact Info) Description 07/15/2025 1:00 PM CDT Office Visit [facility] Oncology and Hematology [facility] [address] [place] [address] Kimberly Naranjo MD [address] [place] [address] documented as of this encounter Visit Diagnoses Diagnosis Major depressive disorder, recurrent episode, moderate (CMS/HCC)- Primary Major depressive disorder, recurrent episode, moderate documented in this encounter Additional Health Concerns Infection Onset Date Last Indicated Resolved Time R/O C. diff 07/03/2024 07/03/2024 07/04/2024 11:3 0 AM CDT documented as of this encounter Care Teams General Medical Practitioner Relationship Specialty Start Date End Date Sandor Romero MD [address] [place] [address] PCP - General Family Practice 06/28/24 documented as of this encounter
--- OUTSIDE RECORDS SUMMARY | 2025-04-09 11:05 | XMS_ITS | Encounter Summary ---
Author Organization [facility] Address [address] [place] [address] Care Team Providers Care Welfare Case Worker Name Role Phone Sandor Romero MD Primary Care Provider +1 -[phone] Encounter Details Date Type Department Care Team (Late st Contact Info) Description 09/19/2001 Outpatient Historical [facility] Primary Care - [address] [place] [address] Jimmy Balderas MD NO ADDRESS ON FILE Social History Tobacco Use Types Packs/Day Years Used Date Smoking Tobacco: Never Assessed Comments Unknown Sex and Gender Information Value Date Recorded Sex Assigned at Not on file Legal Sex Female 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 Gender Identity Not on file Sexual Orientation Not on file documented as of this encounter Plan of Treatment Upcoming Encounters Date Type Department Care Team (Late st Contact Info) Description 07/15/2025 1:00 PM CDT Office Visit [facility] Oncology and Hematology [facility] [address] [place] [address] Kimberly Naranjo MD [address] [place] [address] documented as of this encounter Visit Diagnoses Not on filedocumented in this encounter Additional Health Concerns Infection Onset Date Last Indicated Resolved Time R/O C. diff 07/03/2024 07/03/2024 07/04/2024 11:3 0 AM CDT documented as of this encounter Care Teams Welfare Case Worker Relationship Specialty Start Date End Date Sandor Romero MD [address] [place] [address] PCP - General Family Practice 06/28/24 documented as of this encounter
--- OUTSIDE RECORDS SUMMARY | 2025-04-09 11:05 | XMS_ITS | Encounter Summary ---
Author Organization [facility] Address [address] [place] [address] Care Team Providers Care Insulation Helper Name Role Phone Sandor Romero MD Primary Care Provider +1 -[phone] Encounter Details Date Type Department Care Team (Late st Contact Info) Description 03/27/2002 Outpatient Historical [facility] Primary Care - [address] [place] [address] Jimmy Balderas MD NO ADDRESS ON FILE Social History Tobacco Use Types Packs/Day Years Used Date Smoking Tobacco: Never Assessed Comments Unknown Sex and Gender Information Value Date Recorded Sex Assigned at Not on file Legal Sex Female 4:28 AM RIB STIFFENER AND HEEL DIPPER Gender Identity Not on file Sexual Orientation Not on file documented as of this encounter Plan of Treatment Upcoming Encounters Date Type Department Care Team (Late st Contact Info) Description 07/15/2025 1:00 PM CDT Office Visit [facility] Oncology and Hematology [facility] [address] [place] [address] Kimberly Naranjo MD [address] [place] [address] documented as of this encounter Visit Diagnoses Not on filedocumented in this encounter Additional Health Concerns Infection Onset Date Last Indicated Resolved Time R/O C. diff 07/03/2024 07/03/2024 07/04/2024 11:3 0 AM CDT documented as of this encounter Care Teams Insulation Helper Relationship Specialty Start Date End Date Sandor Romero MD [address] [place] [address] PCP - General Family Practice 06/28/24 documented as of this encounter
--- OUTSIDE RECORDS SUMMARY | 2025-04-09 11:05 | XMS_ITS | Encounter Summary ---
Author Organization [facility] Address [address] [place] [address] Care Team Providers Care City Secretary Name Role Phone Sandor Romero MD Primary Care Provider +1 -[phone] Encounter Details Date Type Department Care Team (Late st Contact Info) Description 04/18/2002 Outpatient Historical [facility] [address] [place] [address] Gricelda Card MD Social History Tobacco Use Types Packs/Day Years Used Date Smoking Tobacco: Never Assessed Comments Unknown Sex and Gender Information Value Date Recorded Sex Assigned at Not on file Legal Sex Female 4:28 AM STOGIE PACKER Gender Identity Not on file Sexual Orientation Not on file documented as of this encounter Plan of Treatment Upcoming Encounters Date Type Department Care Team (Late st Contact Info) Description 07/15/2025 1:00 PM CDT Office Visit [facility] Oncology and Hematology [facility] [address] [place] [address] Kimberly Naranjo MD [address] [place] [address] documented as of this encounter Visit Diagnoses Not on filedocumented in this encounter Additional Health Concerns Infection Onset Date Last Indicated Resolved Time R/O C. diff 07/03/2024 07/03/2024 07/04/2024 11:3 0 AM CDT documented as of this encounter Care Teams City Secretary Relationship Specialty Start Date End Date Sandro Romero MD [address] [place] [address] PCP - General Family Practice 06/28/24 documented as of this encounter
--- OUTSIDE RECORDS SUMMARY | 2025-04-09 11:05 | XMS_ITS | Encounter Summary ---
Author Organization [facility] Address 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 Gender Identity Not on file Sexual Orientation Not on file documented as of this encounter Plan of Treatment Upcoming Encounters Date Type Department Care Team (Late st Contact Info) Description 07/15/2025 1:00 PM CDT Office Visit [facility] Oncology and Hematology [facility] [address] [place] [address] Kimberly Naranjo MD [address] [place] [address] documented as of this encounter Visit Diagnoses Diagnosis Abdominal pain, unspecified site- Primary documented in this encounter Additional Health Concerns Infection Onset Date Last Indicated Resolved Time R/O C. diff 07/03/2024 07/03/2024 07/04/2024 11:3 0 AM CDT documented as of this encounter Care Teams Animal Ride Attendant Relationship Specialty Start Date End Date Sandor Romero MD [address] [place] [address] PCP - General Family Practice 06/28/24 documented as of this encounter
--- OUTSIDE RECORDS SUMMARY | 2025-04-09 11:05 | XMS_ITS | Encounter Summary ---
Author Organization [facility] Address [address] [place] [address] Care Team Providers Care It Manager Name Role Phone Sandor Romero MD Primary Care Provider +1 -[phone] Encounter Details Date Type Department Care Team (Late st Contact Info) Description 12/01/[address] [facility] Support Serv. (Adt Cardiology[facility]) [address] [place] [address] Gricelda Card MD Social History Tobacco Use Types Packs/Day Years Used Date Smoking Tobacco: Never Assessed Comments Unknown Sex and Gender Information Value Date Recorded Sex Assigned at Not on file Legal Sex Female 4:28 AM WOOD FLOUR MILLER Gender Identity Not on file Sexual Orientation Not on file documented as of this encounter Plan of Treatment Upcoming Encounters Date Type Department Care Team (Late st Contact Info) Description 07/15/2025 1:00 PM CDT Office Visit [facility] Oncology and Hematology [facility] [address] [place] [address] Kimberly Naranjo MD [address] [place] [address] documented as of this encounter Visit Diagnoses Not on filedocumented in this encounter Additional Health Concerns Infection Onset Date Last Indicated Resolved Time R/O C. diff 07/03/2024 07/03/2024 07/04/2024 11:3 0 AM CDT documented as of this encounter Care Teams It Manager Relationship Specialty Start Date End Date Sandor Romero MD [address] [place] [address] PCP - General Family Practice 06/28/24 documented as of this encounter
--- OUTSIDE RECORDS SUMMARY | 2025-04-09 11:05 | XMS_ITS | Encounter Summary ---
Author Organization [facility] Address [address] [place] [address] Care Team Providers Care Associate Quality Engineer Name Role Phone Sandor Romero MD Primary Care Provider +1 -[phone] Encounter Details Date Type Department Care Team (Late st Contact Info) Description 02/02/2006 Orders Only [facility] Primary Care - [address] [place] [address] Jimmy Balderas MD NO ADDRESS ON FILE Social History Tobacco Use Types Packs/Day Years Used Date Smoking Tobacco: Never Assessed Comments Unknown Sex and Gender Information Value Date Recorded Sex Assigned at Not on file Legal Sex Female 4:28 AM TABLE WORKER PACKAGER Gender Identity Not on file Sexual Orientation Not on file documented as of this encounter Plan of Treatment Upcoming Encounters Date Type Department Care Team (Late st Contact Info) Description 07/15/2025 1:00 PM CDT Office Visit [facility] Oncology and Hematology [facility] [address] [place] [address] Kimberly Naranjo MD [address] [place] [address] documented as of this encounter Visit Diagnoses Not on filedocumented in this encounter Additional Health Concerns Infection Onset Date Last Indicated Resolved Time R/O C. diff 07/03/2024 07/03/2024 07/04/2024 11:3 0 AM CDT documented as of this encounter Care Teams Associate Quality Engineer Relationship Specialty Start Date End Date [place] [address] [place] [address] PCP - General Family Practice 06/28/24 documented as of this encounter
--- OUTSIDE RECORDS SUMMARY | 2025-04-09 11:05 | XMS_ITS | Encounter Summary ---
Author Organization [facility] Address [address] [place] [address] Care Team Providers Care Music Instructor Name Role Phone Sandor Romero MD Primary Care Provider +1 -[phone] Encounter Details Date Type Department Care Team (Late st Contact Info) Description 05/04/2004 Outpatient Historical [facility] Primary Care - [address] [place] [address] Jimmy Balderas MD NO ADDRESS ON FILE Social History Tobacco Use Types Packs/Day Years Used Date Smoking Tobacco: Never Assessed Comments Unknown Sex and Gender Information Value Date Recorded Sex Assigned at Not on file Legal Sex Female 4:28 AM MARKET MAKER Gender Identity Not on file Sexual Orientation Not on file documented as of this encounter Plan of Treatment Upcoming Encounters Date Type Department Care Team (Late st Contact Info) Description 07/15/2025 1:00 PM CDT Office Visit [facility] Oncology and Hematology [facility] [address] [place] [address] Kimberly Naranjo MD [address] [place] [address] documented as of this encounter Visit Diagnoses Not on filedocumented in this encounter Additional Health Concerns Infection Onset Date Last Indicated Resolved Time R/O C. diff 07/03/2024 07/03/2024 07/04/2024 11:3 0 AM CDT documented as of this encounter Care Teams Music Instructor Relationship Specialty Start Date End Date Sandor Romero MD [address] [place] [address] PCP - General Family Practice 06/28/24 documented as of this encounter
--- OUTSIDE RECORDS SUMMARY | 2025-04-09 11:05 | XMS_ITS | Encounter Summary ---
Author Organization [facility] Address [address] [place] [address] Care Team Providers Care Canal Boat Captain Name Role Phone Sandor Romero MD Primary Care Provider +1 -[phone] Encounter Details Date Type Department Care Team (Latest Contact Info) Description 10/04/2001 Outpatient Historical HIS [facility] Jimmy Balderas MD NO ADDRESS ON FILE BREAST REPLACEMT BY OTHER MEANS (Primary Dx) Social History Tobacco Use Types Packs/Day Years Used Date Smoking Tobacco: Never Assessed Comments Unknown Sex and Gender Information Value Date Recorded Sex Assigned at Not on file Legal Sex Female 4:28 AM ENGINEERING TEACHER Gender Identity Not on file Sexual Orientation Not on file documented as of this encounter Plan of Treatment Upcoming Encounters Date Type Department Care Team (Late st Contact Info) Description 07/15/2025 1:00 PM CDT Office Visit [facility] Oncology and Hematology [facility] [address] [place] [address] Kimberly Naranjo MD [address] [place] [address] documented as of this encounter Visit Diagnoses Diagnosis Breast replaced by other means- Primary documented in this encounter Additional Health Concerns Infection Onset Date Last Indicated Resolved Time R/O C. diff 07/03/2024 07/03/2024 07/04/2024 11:3 0 AM CDT documented as of this encounter Care Teams Canal Boat Captain Relationship Specialty Start Date End Date Sandor Romero MD [address] [place] [address] PCP - General Family Practice 06/28/24 documented as of this encounter
--- OUTSIDE RECORDS SUMMARY | 2025-04-09 11:05 | XMS_ITS | Encounter Summary ---
Author Organization [facility] Address [address] [place] [address] Care Team Providers Care Repairer Controller Tester Name Role Phone Sandor Romero MD Primary Care Provider +1 -[phone] Encounter Details Date Type Department Care Team (Late st Contact Info) Description 05/14/2002 Outpatient Historical [facility] [place] [address] [facility] [address] [place] [address] DEPRESSIVE DISORDER NEC (Primary Dx) Social History Tobacco Use Types Packs/Day Years Used Date Smoking Tobacco: Never Assessed Comments Unknown Sex and Gender Information Value Date Recorded Sex Assigned at Not on file Legal Sex Female 4:28 AM 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 ESTATE 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 Gender Identity Not on file Sexual Orientation Not on file documented as of this encounter Plan of Treatment Upcoming Encounters Date Type Department Care Team (Late st Contact Info) Description 07/15/2025 1:00 PM CDT Office Visit [facility] Oncology and Hematology [facility] [address] [place] [address] Kimberly Naranjo MD [address] [place] [address] documented as of this encounter Visit Diagnoses Diagnosis Depressive disorder, not elsewhere classified- Primary documented in this encounter Additional Health Concerns Infection Onset Date Last Indicated Resolved Time R/O C. diff 07/03/2024 07/03/2024 07/04/2024 11:3 0 AM CDT documented as of this encounter Care Teams Repairer Controller Tester Relationship Specialty Start Date End Date Sandor Romero MD [address] [place] [address] PCP - General Family Practice 06/28/24 documented as of this encounter
--- OUTSIDE RECORDS SUMMARY | 2025-04-09 11:05 | XMS_ITS | Encounter Summary ---
Author Organization [facility] Address [address] [place] [address] Care Team Providers Care Sew Out Operator Name Role Phone Sandor Romero MD Primary Care Provider +1 -[phone] Encounter Details Date Type Department Care Team (Late st Contact Info) Description 07/11/2003 Outpatient Historical [facility] Primary [facility] - [address] [place] [address] Jimmy Balderas MD NO ADDRESS ON FILE Social History Tobacco Use Types Packs/Day Years Used Date Smoking Tobacco: Never Assessed Comments Unknown Sex and Gender Information Value Date Recorded Sex Assigned at Not on file Legal Sex Female 4:28 AM INSULATION NOZZLEMAN Gender Identity Not on file Sexual Orientation Not on file documented as of this encounter Plan of Treatment Upcoming Encounters Date Type Department Care Team (Late st Contact Info) Description 07/15/2025 1:00 PM CDT Office Visit [facility] Oncology and Hematology [facility] [address] [place] [address] Kimberly Naranjo MD [address] [place] [address] documented as of this encounter Visit Diagnoses Not on filedocumented in this encounter Additional Health Concerns Infection Onset Date Last Indicated Resolved Time R/O C. diff 07/03/2024 07/03/2024 07/04/2024 11:3 0 AM CDT documented as of this encounter Care Teams Sew Out Operator Relationship Specialty Start Date End Date Sandor Romero MD [address] [place] [address] PCP - General Family Practice 06/28/24 documented as of this encounter
--- OUTSIDE RECORDS SUMMARY | 2025-04-09 11:05 | XMS_ITS | Encounter Summary ---
Author Organization [facility] Address [address] [place] [address] Care Team Providers Care Sr. Logistics Analyst Name Role Phone Sandor Romero MD Primary Care Provider +1 [phone] Encounter Details Date Type Department Care Team (Latest Contact Info) Description 12/06/2002 Outpatient Historical [facility] Jimmy Balderas MD NO ADDRESS ON FILE SHORTNESS OF BREATH (Primary Dx) Social History Tobacco Use Types Packs/Day Years Used Date Smoking Tobacco: Never Assessed Comments Unknown Sex and Gender Information Value Date Recorded Sex Assigned at Not on file Legal Sex Female 4:28 AM APPLIANCE MECHANIC Gender Identity Not on file Sexual Orientation Not on file documented as of this encounter Plan of Treatment Upcoming Encounters Date Type Department Care Team (Late st Contact Info) Description 07/15/2025 1:00 PM CDT Office Visit [facility] Oncology and Hematology [facility] [address] [place] [address] Kimberly Naranjo MD [address] [place] [address] documented as of this encounter Visit Diagnoses Diagnosis Shortness of breath- Primary documented in this encounter Additional Health Concerns Infection Onset Date Last Indicated Resolved Time R/O C. diff 07/03/2024 07/03/2024 07/04/2024 11:3 0 AM CDT documented as of this encounter Care Teams Sr. Logistics Analyst Relationship Specialty Start Date End Date Sandor Romero MD [address] [place] [phone] PCP - General Family Practice 06/28/24 documented as of this encounter
--- OUTSIDE RECORDS SUMMARY | 2025-04-09 11:05 | XMS_ITS | Encounter Summary ---
Author Organization [facility] Address [address] [place] [address] Care Team Providers Care Optimization Consultant Name Role Phone Sandor Romero MD Primary Care Provider +1 [phone] Encounter Details Date Type Department Care Team (Latest Contact Info) Description 02/10/2005 Outpatient Historical [facility] Balderas, Jimmy Gilliam MD NO ADDRESS ON FILE SURGERY FOLLOWUP, OTHER (Primary Dx) Social History Tobacco Use Types Packs/Day Years Used Date Smoking Tobacco: Never Assessed Comments Unknown Sex and Gender Information Value Date Recorded Sex Assigned at Not on file Legal Sex Female 4:28 AM EMISSIONS ENGINEER Gender Identity Not on file Sexual Orientation Not on file documented as of this encounter Plan of Treatment Upcoming Encounters Date Type Department Care Team (Late st Contact Info) Description 07/15/2025 1:00 PM CDT Office Visit [facility] Oncology and Hematology [facility] [address] [place] [address] Kimberly Naranjo MD [address] [place] [address] documented as of this encounter Visit Diagnoses Diagnosis Follow-up examination, following other surgery- Primary documented in this encounter Additional Health Concerns Infection Onset Date Last Indicated Resolved Time R/O C. diff 07/03/2024 07/03/2024 07/04/2024 11:3 0 AM CDT documented as of this encounter Care Teams Optimization Consultant Relationship Specialty Start Date End Date Sandor Romero MD [address] [place] [address] PCP - General Family Practice 06/28/24 documented as of this encounter
--- OUTSIDE RECORDS SUMMARY | 2025-04-09 11:05 | XMS_ITS | Encounter Summary ---
Author Organization [facility] Address [address] [place] [address] Care Team Providers Care Cold Press Loader Name Role Phone Sandor Romero MD Primary Care Provider +1 [phone] Encounter Details Date Type Department Care Team (Late st Contact Info) Description 04/27/2002 Outpatient Historical [facility] [place] [address] [facility] [address] [place] [address] DEPRESSIVE DISORDER NEC (Primary Dx) Social History Tobacco Use Types Packs/Day Years Used Date Smoking Tobacco: Never Assessed Comments Unknown Sex and Gender Information Value Date Recorded Sex Assigned at Not on file Legal Sex Female 4:28 AM FIXED WING AIRCRAFT FLIGHT ENGINEER Gender Identity Not on file Sexual Orientation Not on file documented as of this encounter Plan of Treatment Upcoming Encounters Date Type Department Care Team (Late st Contact Info) Description 07/15/2025 1:00 PM CDT Office Visit [facility] Oncology and Hematology [facility] [address] [place] [address] Kimberly Naranjo MD [address] [place] [address] documented as of this encounter Visit Diagnoses Diagnosis Depressive disorder, not elsewhere classified- Primary documented in this encounter Additional Health Concerns Infection Onset Date Last Indicated Resolved Time R/O C. diff 07/03/2024 07/03/2024 07/04/2024 11:3 0 AM CDT documented as of this encounter Care Teams Cold Press Loader Relationship Specialty Start Date End Date Sandor Romero MD [address] [place] [address] PCP - General Family Practice 06/28/24 documented as of this encounter
--- OUTSIDE RECORDS SUMMARY | 2025-04-09 11:05 | XMS_ITS | Encounter Summary ---
Author Organization [facility] Address [address] [place] [address] Care Team Providers Care Perinatal Nurse Name Role Phone Sandor Romero MD Primary Care Provider +1 -[phone] Encounter Details Date Type Department Care Team (Late st Contact Info) Description 05/07/2002 Outpatient Historical [facility] [place] [address] [facility] [address] [place] [address] DEPRESSIVE DISORDER NEC (Primary Dx) Social History Tobacco Use Types Packs/Day Years Used Date Smoking Tobacco: Never Assessed Comments Unknown Sex and Gender Information Value Date Recorded Sex Assigned at Not on file Legal Sex Female 4:28 AM OTOLARYNGOLOGY TEACHER Gender Identity Not on file Sexual Orientation Not on file documented as of this encounter Plan of Treatment Upcoming Encounters Date Type Department Care Team (Late st Contact Info) Description 07/15/2025 1:00 PM CDT Office Visit [facility] Oncology and Hematology [facility] [address] [place] [address] Kimberly Naranjo MD [address] [place] [address] documented as of this encounter Visit Diagnoses Diagnosis Depressive disorder, not elsewhere classified- Primary documented in this encounter Additional Health Concerns Infection Onset Date Last Indicated Resolved Time R/O C. diff 07/03/2024 07/03/2024 07/04/2024 11:3 0 AM CDT documented as of this encounter Care Teams Perinatal Nurse Relationship Specialty Start Date End Date Sandor Romero MD [address] [place] [address] PCP - General Family Practice 06/28/24 documented as of this encounter
--- OUTSIDE RECORDS SUMMARY | 2025-04-09 11:05 | XMS_ITS | Encounter Summary ---
Author Organization [facility] Address [address] [place] [address] Care Team Providers Care Computer Systems Administrator Name Role Phone Sandor Romero MD Primary Care Provider +1 -[phone] Encounter Details Date Type Department Care Team (Late st Contact Info) Description 08/31/2001 Outpatient Historical [facility] Jimmy Balderas MD NO ADDRESS ON FILE Abnormal weight gain (Primary Dx) Social History Tobacco Use Types Packs/Day Years Used Date Smoking Tobacco: Never Assessed Comments Unknown Sex and Gender Information Value Date Recorded Sex Assigned at Not on file Legal Sex Female 4:28 AM SALES TEAM MEMBER Gender Identity Not on file Sexual Orientation Not on file documented as of this encounter Plan of Treatment Upcoming Encounters Date Type Department Care Team (Late st Contact Info) Description 07/15/2025 1:00 PM CDT Office Visit [facility] Oncology and Hematology [facility] [address] [place] [address] Kimberly Naranjo MD [address] [facility] [address] [facility] [address] [place] [address] documented as of this encounter Visit Diagnoses Diagnosis Abnormal weight gain- Primary documented in this encounter Additional Health Concerns Infection Onset Date Last Indicated Resolved Time R/O C. diff 07/03/2024 07/03/2024 07/04/2024 11:3 0 AM CDT documented as of this encounter Care Teams Computer Systems Administrator Relationship Specialty Start Date End Date Sandor Romero MD [address] [place] [phone] PCP - General Family Practice 06/28/24 documented as of this encounter
--- OUTSIDE RECORDS SUMMARY | 2025-04-09 11:05 | XMS_ITS | Encounter Summary ---
Author Organization [facility] Address [address] [place] [address] Care Team Providers Care Shellfish Farming Supervisor Name Role Phone Sandor Romero MD Primary Care Provider +1 -[phone] Encounter Details Date Type Department Care Team (Late st Contact Info) Description 09/23/2005 Outpatient Historical [facility] Primary Care - [address] [place] [address] Jimmy Balderas MD NO ADDRESS ON FILE Social History Tobacco Use Types Packs/Day Years Used Date Smoking Tobacco: Never Assessed Comments Unknown Sex and Gender Information Value Date Recorded Sex Assigned at Not on file Legal Sex Female 4:28 AM SHIP SELF DEFENSE SYSTEM MK1 OPERATOR Gender Identity Not on file Sexual Orientation Not on file documented as of this encounter Plan of Treatment Upcoming Encounters Date Type Department Care Team (Late st Contact Info) Description 07/15/2025 1:00 PM CDT Office Visit [facility] Oncology and Hematology [facility] [address] [place] [address] Kimberly Naranjo MD [address] [place] [address] documented as of this encounter Visit Diagnoses Not on filedocumented in this encounter Additional Health Concerns Infection Onset Date Last Indicated Resolved Time R/O C. diff 07/03/2024 07/03/2024 07/04/2024 11:3 0 AM CDT documented as of this encounter Care Teams Shellfish Farming Supervisor Relationship Specialty Start Date End Date Sandor Romero MD [address] [place] [address] PCP - General Family Practice 06/28/24 documented as of this encounter
--- OUTSIDE RECORDS SUMMARY | 2025-04-09 11:05 | XMS_ITS | Encounter Summary ---
Author Organization [facility] Address [address] [place] [address] Care Team Providers Care Bungy Jump Master Name Role Phone Sandor Romero MD Primary Care Provider +1 -[phone] Encounter Details Date Type Department Care Team (Late st Contact Info) Description 05/16/2002 Outpatient Historical [facility] [place] [address] [facility] [address] [place] [address] DEPRESSIVE DISORDER NEC (Primary Dx) Social History Tobacco Use Types Packs/Day Years Used Date Smoking Tobacco: Never Assessed Comments Unknown Sex and Gender Information Value Date Recorded Sex Assigned at Not on file Legal Sex Female 4:28 AM PRESS HAND Gender Identity Not on file Sexual Orientation Not on file documented as of this encounter Plan of Treatment Upcoming Encounters Date Type Department Care Team (Late st Contact Info) Description 07/15/2025 1:00 PM CDT Office Visit [facility] Oncology and Hematology [facility] [address] [place] [address] Kimberly Naranjo MD [address] [place] [address] documented as of this encounter Visit Diagnoses Diagnosis Depressive disorder, not elsewhere classified- Primary documented in this encounter Additional Health Concerns Infection Onset Date Last Indicated Resolved Time R/O C. diff 07/03/2024 07/03/2024 07/04/2024 11:3 0 AM CDT documented as of this encounter Care Teams Bungy Jump Master Relationship Specialty Start Date End Date Sandor Romero MD [address] [place] [address] PCP - General Family Practice 06/28/24 documented as of this encounter
--- OUTSIDE RECORDS SUMMARY | 2025-04-09 11:05 | XMS_ITS | Encounter Summary ---
Author Organization [facility] Address [address] [place] [address] Care Team Providers Care Farm Helper Name Role Phone Sandor Romero MD Primary Care Provider +1 -[phone] Encounter Details Date Type Department Care Team (Late st Contact Info) Description 08/16/[address] [facility] Primary Care - [address] [place] [address] Jimmy Balderas MD NO ADDRESS ON FILE Social History Tobacco Use Types Packs/Day Years Used Date Smoking Tobacco: Never Assessed Comments Unknown Sex and Gender Information Value Date Recorded Sex Assigned at Not on file Legal Sex Female 4:28 AM GLAZE HANDLER Gender Identity Not on file Sexual Orientation Not on file documented as of this encounter Plan of Treatment Upcoming Encounters Date Type Department Care Team (Late st Contact Info) Description 07/15/2025 1:00 PM CDT Office Visit [facility] Oncology and Hematology [facility] [address] [place] [address] Kimberly Naranjo MD [address] [place] [address] documented as of this encounter Visit Diagnoses Not on filedocumented in this encounter Additional Health Concerns Infection Onset Date Last Indicated Resolved Time R/O C. diff 07/03/2024 07/03/2024 07/04/2024 11:3 0 AM CDT documented as of this encounter Care Teams Farm Helper Relationship Specialty Start Date End Date Sandor Romero MD [address] [place] [address] PCP - General Family Practice 06/28/24 documented as of this encounter
--- OUTSIDE RECORDS SUMMARY | 2025-04-09 11:05 | XMS_ITS | Encounter Summary ---
Author Organization [facility] Address [address] [place] [address] Care Team Providers Care Orthodontic Technician Assistant Name Role Phone Sandor Romero MD Primary Care Provider +1 -[phone] Encounter Details Date Type Department Care Team (Late st Contact Info) Description 05/09/2002 Outpatient Historical [facility] [place] [address] [facility] [address] [place] [address] DEPRESSIVE DISORDER NEC (Primary Dx) Social History Tobacco Use Types Packs/Day Years Used Date Smoking Tobacco: Never Assessed Comments Unknown Sex and Gender Information Value Date Recorded Sex Assigned at Not on file Legal Sex Female 4:28 AM WAITER WAITRESS Gender Identity Not on file Sexual Orientation Not on file documented as of this encounter Plan of Treatment Upcoming Encounters Date Type Department Care Team (Late st Contact Info) Description 07/15/2025 1:00 PM CDT Office Visit [facility] Oncology and Hematology [facility] [address] [place] [address] Kimberly Naranjo MD [address] [place] [address] documented as of this encounter Visit Diagnoses Diagnosis Depressive disorder, not elsewhere classified- Primary documented in this encounter Additional Health Concerns Infection Onset Date Last Indicated Resolved Time R/O C. diff 07/03/2024 07/03/2024 07/04/2024 11:3 0 AM CDT documented as of this encounter Care Teams Orthodontic Technician Assistant Relationship Specialty Start Date End Date Sandor Romero MD [address] [place] [address] PCP - General Family Practice 06/28/24 documented as of this encounter
--- OUTSIDE RECORDS SUMMARY | 2025-04-09 11:05 | XMS_ITS | Encounter Summary ---
Author Organization [facility] Address [address] [place] [address] Care Team Providers Care Product Development Director Name Role Phone Sandor Romero MD Primary Care Provider +1 -[phone] Encounter Details Date Type Department Care Team (Late st Contact Info) Description 03/25/2005 Outpatient Historical [facility] Sheri Morin MD [address] [place], [place] [id number] SCREENING MAL NEOP-COLON (Primary Dx) Social History Tobacco Use Types Packs/Day Years Used Date Smoking Tobacco: Never Assessed Comments Unknown Sex and Gender Information Value Date Recorded Sex Assigned at Not on file Legal Sex Female 4:28 AM EMBOSSING MACHINE OPERATOR Gender Identity Not on file Sexual Orientation Not on file documented as of this encounter Plan of Treatment Upcoming Encounters Date Type Department Care Team (Late st Contact Info) Description 07/15/2025 1:00 PM CDT Office Visit [facility] Oncology and Hematology [facility] [address] [place] [address] Kimberly Naranjo MD [address] [place] [address] documented as of this encounter Visit Diagnoses Diagnosis Special screening for malignant neoplasms, colon- Primary documented in this encounter Additional Health Concerns Infection Onset Date Last Indicated Resolved Time R/O C. diff 07/03/2024 07/03/2024 07/04/2024 11:3 0 AM CDT documented as of this encounter Care Teams Product Development Director Relationship Specialty Start Date End Date Sandor Romero MD [address] [place] [phone] PCP - General Family Practice 06/28/24 documented as of this encounter
--- OUTSIDE RECORDS SUMMARY | 2025-04-09 11:05 | XMS_ITS | Encounter Summary ---
Author Organization [facility] Address [address] [place] [address] Care Team Providers Care Mechanical Process Engineer Name Role Phone Sandor Romero MD Primary Care Provider +1 -[phone] Encounter Details Date Type Department Care Team (Late st Contact Info) Description 01/10/2004 Outpatient Historical [facility] Primary Care - [address] [place] [address] Jimmy Balderas MD NO ADDRESS ON FILE Social History Tobacco Use Types Packs/Day Years Used Date Smoking Tobacco: Never Assessed Comments Unknown Sex and Gender Information Value Date Recorded Sex Assigned at Not on file Legal Sex Female 4:28 AM PAVING STONE INSTALLER Gender Identity Not on file Sexual Orientation Not on file documented as of this encounter Plan of Treatment Upcoming Encounters Date Type Department Care Team (Late st Contact Info) Description 07/15/2025 1:00 PM CDT Office Visit [facility] Oncology and Hematology [facility] [address] [place] [address] Kimberly Naranjo MD [address] [place] [address] documented as of this encounter Visit Diagnoses Not on filedocumented in this encounter Additional Health Concerns Infection Onset Date Last Indicated Resolved Time R/O C. diff 07/03/2024 07/03/2024 07/04/2024 11:3 0 AM CDT documented as of this encounter Care Teams Mechanical Process Engineer Relationship Specialty Start Date End Date Sandor Romero MD [address] [place] [phone] PCP - General Family Practice 06/28/24 documented as of this encounter
--- OUTSIDE RECORDS SUMMARY | 2025-04-09 11:05 | XMS_ITS | Encounter Summary ---
Author Organization [facility] Address [address] [place] [address] Care Team Providers Care Blueprint Reproducer Name Role Phone Sandor Romero MD Primary Care Provider +1 -[phone] Encounter Details Date Type Department Care Team (Late st Contact Info) Description 12/04/2002 Outpatient Historical [facility] Primary Care - [address] [place] [address] Jimmy Baldears MD NO ADDRESS ON FILE Social History Tobacco Use Types Packs/Day Years Used Date Smoking Tobacco: Never Assessed Comments Unknown Sex and Gender Information Value Date Recorded Sex Assigned at Not on file Legal Sex Female 4:28 AM ADMITTANCE ATTENDANT Gender Identity Not on file Sexual Orientation Not on file documented as of this encounter Plan of Treatment Upcoming Encounters Date Type Department Care Team (Late st Contact Info) Description 07/15/2025 1:00 PM CDT Office Visit [facility] Oncology and Hematology [facility] [address] [place] [address] Kimberly Naranjo MD [address] [place] [address] documented as of this encounter Visit Diagnoses Not on filedocumented in this encounter Additional Health Concerns Infection Onset Date Last Indicated Resolved Time R/O C. diff 07/03/2024 07/03/2024 07/04/2024 11:3 0 AM CDT documented as of this encounter Care Teams Blueprint Reproducer Relationship Specialty Start Date End Date Sandor Romero MD [address] [place] [address] PCP - General Family Practice 06/28/24 documented as of this encounter
--- OUTSIDE RECORDS SUMMARY | 2025-04-09 11:05 | XMS_ITS | Encounter Summary ---
Author Organization [facility] Address [address] [place] [address] Care Team Providers Care Service Inspector Name Role Phone Sandor Romero MD Primary Care Provider +1 -[phone] Encounter Details Date Type Department Care Team (Late st Contact Info) Description 03/13/2001 Outpatient Historical [facility] Primary Care - [address] [place] [address] Jimmy Balderas MD NO ADDRESS ON FILE Social History Tobacco Use Types Packs/Day Years Used Date Smoking Tobacco: Never Assessed Comments Unknown Sex and Gender Information Value Date Recorded Sex Assigned at Not on file Legal Sex Female 4:28 AM PRINTED CIRCUIT BOARDS LAMINATOR Gender Identity Not on file Sexual Orientation Not on file documented as of this encounter Plan of Treatment Upcoming Encounters Date Type Department Care Team (Late st Contact Info) Description 07/15/2025 1:00 PM CDT Office Visit [facility] Oncology and Hematology [facility] [address] [place] [address] Kimberly Naranjo MD [address] [place] [address] documented as of this encounter Visit Diagnoses Not on filedocumented in this encounter Additional Health Concerns Infection Onset Date Last Indicated Resolved Time R/O C. diff 07/03/2024 07/03/2024 07/04/2024 11:3 0 AM CDT documented as of this encounter Care Teams Service Inspector Relationship Specialty Start Date End Date [place] [address] PCP - General Family Practice 06/28/24 documented as of this encounter
--- OUTSIDE RECORDS SUMMARY | 2025-04-09 11:05 | XMS_ITS | Encounter Summary ---
Author Organization [facility] Address [address] [place] [address] Care Team Providers Care Sales Representative Cash Registers Name Role Phone Sandor Romero MD Primary Care Provider +1 -[phone] Encounter Details Date Type Department Care Team (Late st Contact Info) Description 06/19/2001 Outpatient Historical [facility] Akanksha Barron MD NO ADDRESS ON FILE Er, Authorized P NO ADDRESS ON FILE Poisoning by benzodiazepine-base d tranquilizers(969.4 ) (Primary Dx) Social History Tobacco Use Types Packs/Day Years Used Date Smoking Tobacco: Never Assessed Comments Unknown Sex and Gender Information Value Date Recorded Sex Assigned at Not on file Legal Sex Female 4:28 AM GAS MAIN FITTER HELPER Gender Identity Not on file Sexual Orientation Not on file documented as of this encounter Plan of Treatment Upcoming Encounters Date Type Department Care Team (Late st Contact Info) Description 07/15/2025 1:00 PM CDT Office Visit [facility] Oncology and Hematology [facility] [address] [place] [address] Kimberly Naranjo MD [address] [place] [address] documented as of this encounter Visit Diagnoses Diagnosis Poisoning by benzodiazepine-based tranquilizers(969.4)- Primary Poisoning by benzodiazepine-based tranquilizers documented in this encounter Additional Health Concerns Infection Onset Date Last Indicated Resolved Time R/O C. diff 07/03/2024 07/03/2024 07/04/2024 11:3 0 AM CDT documented as of this encounter Care Teams Sales Representative Cash Registers Relationship Specialty Start Date End Date Sandor Romero MD [address] [place] [address] PCP - General Family Practice 06/28/24 documented as of this encounter
--- OUTSIDE RECORDS SUMMARY | 2025-04-09 11:05 | XMS_ITS | Encounter Summary ---
Author Organization [facility] Address [address] [place] [address] Care Team Providers Care Tile Edger Name Role Phone Sandor Romero MD Primary Care Provider +1 [phone] Encounter Details Date Type Department Care Team (Latest Contact Info) Description 12/06/2002 Outpatient Historical [facility] Jimmy Balderas MD NO ADDRESS ON FILE FLATUL/ERUCTAT/GAS PAIN (Primary Dx) Social History Tobacco Use Types Packs/Day Years Used Date Smoking Tobacco: Never Assessed Comments Unknown Sex and Gender Information Value Date Recorded Sex Assigned at Not on file Legal Sex Female 4:28 AM EQUIPMENT SERVICES ASSOCIATE Gender Identity Not on file Sexual Orientation Not on file documented as of this encounter Plan of Treatment Upcoming Encounters Date Type Department Care Team (Late st Contact Info) Description 07/15/2025 1:00 PM CDT Office Visit [facility] Oncology and Hematology [facility] [address] [place] [address] Kimberly Naranjo MD [address] [place] [address] documented as of this encounter Visit Diagnoses Diagnosis Flatulence, eructation, and gas pain- Primary documented in this encounter Additional Health Concerns Infection Onset Date Last Indicated Resolved Time R/O C. diff 07/03/2024 07/03/2024 07/04/2024 11:3 0 AM CDT documented as of this encounter Care Teams Tile Edger Relationship Specialty Start Date End Date Sandor Romero MD [address] [place] [phone] PCP - General Family Practice 06/28/24 documented as of this encounter
--- OUTSIDE RECORDS SUMMARY | 2025-04-09 11:05 | XMS_ITS | Encounter Summary ---
Author Organization [facility] Address [address] [place] [address] Care Team Providers Care Thermospray Operator Name Role Phone Sandor Romero MD Primary Care Provider +1 [phone] Encounter Details Date Type Department Care Team (Late st Contact Info) Description 12/17/2004 Outpatient Historical [facility] Primary Care - [address] [place] [address] Jimmy Balderas MD NO ADDRESS ON FILE Social History Tobacco Use Types Packs/Day Years Used Date Smoking Tobacco: Never Assessed Comments Unknown Sex and Gender Information Value Date Recorded Sex Assigned at Not on file Legal Sex Female 4:28 AM SUPERINTENDENT CIRCUS Gender Identity Not on file Sexual Orientation Not on file documented as of this encounter Plan of Treatment Upcoming Encounters Date Type Department Care Team (Late st Contact Info) Description 07/15/2025 1:00 PM CDT Office Visit [facility] Oncology and Hematology [facility] [address] [place] [address] Kimberly Naranjo MD [address] [place] [address] documented as of this encounter Visit Diagnoses Not on filedocumented in this encounter Additional Health Concerns Infection Onset Date Last Indicated Resolved Time R/O C. diff 07/03/2024 07/03/2024 07/04/2024 11:3 0 AM CDT documented as of this encounter Care Teams Thermospray Operator Relationship Specialty Start Date End Date Sandor Romero MD [address] [place] [address] PCP - General Family Practice 06/28/24 documented as of this encounter
--- OUTSIDE RECORDS SUMMARY | 2025-04-09 11:05 | XMS_ITS | Encounter Summary ---
Author Organization [facility] Address [address] [place] [address] Care Team Providers Care Fish Checker Name Role Phone Sandor Romero MD Primary Care Provider +1 [phone] Encounter Details Date Type Department Care Team (Late st Contact Info) Description 05/02/2002 Outpatient Historical [facility] [place] [address] [facility] [address] [place] [address] DEPRESSIVE DISORDER NEC (Primary Dx) Social History Tobacco Use Types Packs/Day Years Used Date Smoking Tobacco: Never Assessed Comments Unknown Sex and Gender Information Value Date Recorded Sex Assigned at Not on file Legal Sex Female 4:28 AM FIRE 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 OFFICER Gender Identity Not on file Sexual Orientation Not on file documented as of this encounter Plan of Treatment Upcoming Encounters Date Type Department Care Team (Late st Contact Info) Description 07/15/2025 1:00 PM CDT Office Visit [facility] Oncology and Hematology [facility] [address] [address] [facility] [address] [place] [address] Kimberly Naranjo MD [address] [place] [address] documented as of this encounter Visit Diagnoses Diagnosis Depressive disorder, not elsewhere classified- Primary documented in this encounter Additional Health Concerns Infection Onset Date Last Indicated Resolved Time R/O C. diff 07/03/2024 07/03/2024 07/04/2024 11:3 0 AM CDT documented as of this encounter Care Teams Fish Checker Relationship Specialty Start Date End Date Sandor Romero MD [address] [place] [address] PCP - General Family Practice 06/28/24 documented as of this encounter
--- OUTSIDE RECORDS SUMMARY | 2025-04-09 11:05 | XMS_ITS | Encounter Summary ---
Author Organization [facility] Address [address] [place] [address] Care Team Providers Care Architecture Intern Name Role Phone Sandor Romero MD Primary Care Provider +1 [phone] Encounter Details Date Type Department Care Team (Late st Contact Info) Description 05/04/2002 Outpatient Historical [facility] [place] [address] [facility] [address] [place] [address] DEPRESSIVE DISORDER NEC (Primary Dx) Social History Tobacco Use Types Packs/Day Years Used Date Smoking Tobacco: Never Assessed Comments Unknown Sex and Gender Information Value Date Recorded Sex Assigned at Not on file Legal Sex Female 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 PERSONNEL SECURITY SPECIALIST Gender Identity Not on file Sexual Orientation Not on file documented as of this encounter Plan of Treatment Upcoming Encounters Date Type Department Care Team (Late st Contact Info) Description 07/15/2025 1:00 PM CDT Office Visit [facility] Oncology and Hematology [facility] [address] [facility] [address] [address] [place] [address] Kimberly Naranjo MD [address] [place] [address] documented as of this encounter Visit Diagnoses Diagnosis Depressive disorder, not elsewhere classified- Primary documented in this encounter Additional Health Concerns Infection Onset Date Last Indicated Resolved Time R/O C. diff 07/03/2024 07/03/2024 07/04/2024 11:3 0 AM CDT documented as of this encounter Care Teams Architecture Intern Relationship Specialty Start Date End Date Sandor Romero MD [address] [place] [address] PCP - General Family Practice 06/28/24 documented as of this encounter
--- OUTSIDE RECORDS SUMMARY | 2025-04-09 11:06 | XMS_ITS | Encounter Summary ---
Author Organization [facility] Address [address] [place] [address] Care Team Providers Care Aircraft Cleaner Name Role Phone Sandor Romero MD Primary Care Provider +1 -[phone] Encounter Details Date Type Department Care Team (Late st Contact Info) Description 04/18/2000 Outpatient Historical [facility] Primary Care - [address] [place] [address] Jimmy Balderas MD NO ADDRESS ON FILE Social History Tobacco Use Types Packs/Day Years Used Date Smoking Tobacco: Never Assessed Comments Unknown Sex and Gender Information Value Date Recorded Sex Assigned at Not on file Legal Sex Female 4:28 AM TELEVISION 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 ANCHOR Gender Identity Not on file Sexual Orientation Not on file documented as of this encounter Plan of Treatment Upcoming Encounters Date Type Department Care Team (Late st Contact Info) Description 07/15/2025 1:00 PM CDT Office Visit [facility] Oncology and Hematology [facility] [address] [place] [address] Kimberly Naranjo MD [address] [place] [address] documented as of this encounter Visit Diagnoses Not on filedocumented in this encounter Additional Health Concerns Infection Onset Date Last Indicated Resolved Time R/O C. diff 07/03/2024 07/03/2024 07/04/2024 11:3 0 AM CDT documented as of this encounter Care Teams Aircraft Cleaner Relationship Specialty Start Date End Date Sandor Romero MD [address] [place] [address] PCP - General Family Practice 06/28/24 documented as of this encounter
--- OUTSIDE RECORDS SUMMARY | 2025-04-09 11:06 | XMS_ITS | Encounter Summary ---
Author Organization [facility] Address [address] [place] [address] Care Team Providers Care Piano Refinisher Name Role Phone Sandor Romero MD Primary Care Provider +1 -[phone] Encounter Details Date Type Department Care Team (Latest Contact Info) Description 05/16/2008 Outpatient Historical [facility] [address] Jimmy Balderas MD NO ADDRESS ON FILE Routine General Medical Examination at a Health Care Facility Social History Tobacco Use Types Packs/Day Years Used Date Smoking Tobacco: Never Alcohol Use Standard Drinks/Week Comments Yes 0 (1 standard drink = 0.6 oz pur e alcohol) Comments No Sex and Gender Information Value Date Recorded Sex Assigned at Not on file Legal Sex Female 4:28 AM LAPPING MACHINE TENDER Gender Identity Not on file Sexual Orientation Not on file documented as of this encounter Plan of Treatment Upcoming Encounters Date Type Department Care Team (Late st Contact Info) Description 07/15/2025 1:00 PM CDT Office Visit [facility] Oncology and Hematology [facility] [address] [place] [address] Kimberly Naranjo MD [address] [place] [address] documented as of this encounter Visit Diagnoses Diagnosis Routine general medical examination at a health care facility documented in this encounter Additional Health Concerns Infection Onset Date Last Indicated Resolved Time R/O C. diff 07/03/2024 07/03/2024 07/04/2024 11:3 0 AM CDT documented as of this encounter Care Teams Piano Refinisher Relationship Specialty Start Date End Date Sandor Romero MD [address] [place] [address] PCP - General Family Practice 06/28/24 documented as of this encounter
--- OUTSIDE RECORDS SUMMARY | 2025-04-09 11:06 | XMS_ITS | Encounter Summary ---
Author Organization [facility] Address [address] [place] [address] Care Team Providers Care Electric Screw Driver Operator Name Role Phone Sandor Romero MD Primary Care Provider +1 -[phone] Encounter Details Date Type Department Care Team (Latest Contact Info) Description 04/27/2007 Outpatient Historical [facility] Balderas, Jimmy Gilliam MD NO ADDRESS ON FILE Other Screening Mammogram (Primary Dx) Social History Tobacco Use Types Packs/Day Years Used Date Smoking Tobacco: Never Assessed Comments Unknown Sex and Gender Information Value Date Recorded Sex Assigned at Not on file Legal Sex Female 4:28 AM NATUROPATHIC DOCTOR Gender Identity Not on file Sexual Orientation Not on file documented as of this encounter Plan of Treatment Upcoming Encounters Date Type Department Care Team (Late st Contact Info) Description 07/15/2025 1:00 PM CDT Office Visit [facility] Oncology and Hematology [facility] [address] [place] [address] Kimberly Naranjo MD [address] [place] [address] documented as of this encounter Visit Diagnoses Diagnosis Other screening mammogram- Primary documented in this encounter Additional Health Concerns Infection Onset Date Last Indicated Resolved Time R/O C. diff 07/03/2024 07/03/2024 07/04/2024 11:3 0 AM CDT documented as of this encounter Care Teams Electric Screw Driver Operator Relationship Specialty Start Date End Date Sadnor Romero MD [address] [place] [address] PCP - General Family Practice 06/28/24 documented as of this encounter
--- OUTSIDE RECORDS SUMMARY | 2025-04-09 11:06 | XMS_ITS | Encounter Summary ---
Author Organization [facility] Address [address] [place] [address] Care Team Providers Care Loader Magazine Grinder Name Role Phone Sandor Romero MD Primary Care Provider +1 -[phone] Encounter Details Date Type Department Care Team (Late st Contact Info) Description 04/27/2007 Outpatient Historical [facility] Primary Care - [address] [place] [address] Jimmy Balderas MD NO ADDRESS ON FILE Social History Tobacco Use Types Packs/Day Years Used Date Smoking Tobacco: Never Assessed Comments Unknown Sex and Gender Information Value Date Recorded Sex Assigned at Not on file Legal Sex Female 4:28 AM BARREL RIFLER OPERATOR Gender Identity Not on file Sexual Orientation Not on file documented as of this encounter Plan of Treatment Upcoming Encounters Date Type Department Care Team (Late st Contact Info) Description 07/15/2025 1:00 PM CDT Office Visit [facility] Oncology and Hematology [facility] [address] [place] [address] Kimberly Naranjo MD [address] [place] [address] documented as of this encounter Visit Diagnoses Not on filedocumented in this encounter Additional Health Concerns Infection Onset Date Last Indicated Resolved Time R/O C. diff 07/03/2024 07/03/2024 07/04/2024 11:3 0 AM CDT documented as of this encounter Care Teams Loader Magazine Grinder Relationship Specialty Start Date End Date Sandor Romero MD [address] [place] [address] PCP - General Family Practice 06/28/24 documented as of this encounter
--- OUTSIDE RECORDS SUMMARY | 2025-04-09 11:06 | XMS_ITS | Encounter Summary ---
Author Organization [facility] Address [address] [place] [address] Care Team Providers Care Mandarin Chinese Teacher Name Role Phone Sandor Romero MD Primary Care Provider +1 -[phone] Encounter Details Date Type Department Care Team (Late st Contact Info) Description 01/01/1999 Outpatient Historical [facility] Rafal Tate MD [address] [place] [address] Disturbance of skin sensation (Primary Dx) Social History Tobacco Use Types Packs/Day Years Used Date Smoking Tobacco: Never Assessed Comments Unknown Sex and Gender Information Value Date Recorded Sex Assigned at Not on file Legal Sex Female 4:28 AM YARDAGE CONTROL OPERATOR FORMING Gender Identity Not on file Sexual Orientation Not on file documented as of this encounter Plan of Treatment Upcoming Encounters Date Type Department Care Team (Late st Contact Info) Description 07/15/2025 1:00 PM CDT Office Visit [facility] Oncology and Hematology [facility] [address] [place] [address] Kimberly Naranjo MD [address] [facility] [facility] [place] [address] documented as of this encounter Visit Diagnoses Diagnosis Disturbance of skin sensation- Primary documented in this encounter Additional Health Concerns Infection Onset Date Last Indicated Resolved Time R/O C. diff 07/03/2024 07/03/2024 07/04/2024 11:3 0 AM CDT documented as of this encounter Care Teams Mandarin Chinese Teacher Relationship Specialty Start Date End Date Sandor Romero MD [address] [place] [address] PCP - General Family Practice 06/28/24 documented as of this encounter
--- OUTSIDE RECORDS SUMMARY | 2025-04-09 11:06 | XMS_ITS | Encounter Summary ---
Author Organization [facility] Address [address] [place] [address] Care Team Providers Care Mate First Name Role Phone Sandor Roemro MD Primary Care Provider +1 -[phone] Encounter Details Date Type Department Care Team (Latest Contact Info) Description 08/27/1999 Outpatient Historical [facility] Balderas, Jimmy Gilliam MD NO ADDRESS ON FILE Breast replaced by other means (Primary Dx) Social History Tobacco Use Types Packs/Day Years Used Date Smoking Tobacco: Never Assessed Comments Unknown Sex and Gender Information Value Date Recorded Sex Assigned at Not on file Legal Sex Female 4:28 AM PLY BANDER Gender Identity Not on file Sexual Orientation Not on file documented as of this encounter Plan of Treatment Upcoming Encounters Date Type Department Care Team (Late st Contact Info) Description 07/15/2025 1:00 PM CDT Office Visit [facility] Oncology and Hematology [facility] [address] [place] [address] Kimberly Naranjo MD [address] [place] [address] documented as of this encounter Visit Diagnoses Diagnosis Breast replaced by other means- Primary documented in this encounter Additional Health Concerns Infection Onset Date Last Indicated Resolved Time R/O C. diff 07/03/2024 07/03/2024 07/04/2024 11:3 0 AM CDT documented as of this encounter Care Teams Mate First Relationship Specialty Start Date End Date Sandor Romero MD [address] [place] [address] PCP - General Family Practice 06/28/24 documented as of this encounter
--- OUTSIDE RECORDS SUMMARY | 2025-04-09 11:06 | XMS_ITS | Encounter Summary ---
Author Organization [facility] Address 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 Gender Identity Not on file Sexual Orientation Not on file documented as of this encounter Plan of Treatment Upcoming Encounters Date Type Department Care Team (Late st Contact Info) Description 07/15/2025 1:00 PM CDT Office Visit [facility] Oncology and Hematology [facility] [address] [place] [address] Kimberly Naranjo MD [address] [place] [address] documented as of this encounter Visit Diagnoses Not on filedocumented in this encounter Additional Health Concerns Infection Onset Date Last Indicated Resolved Time R/O C. diff 07/03/2024 07/03/2024 07/04/2024 11:3 0 AM CDT documented as of this encounter Care Teams Hotel Front Desk Clerk Relationship Specialty Start Date End Date Sandor Romero MD [address] [place] [address] PCP - General Family Practice 06/28/24 documented as of this encounter
--- OUTSIDE RECORDS SUMMARY | 2025-04-09 11:06 | XMS_ITS | Encounter Summary ---
Author Organization [facility] Address [address] [place] [address] Care Team Providers Care Business Manager [employer] Name Role Phone Sandor Romero MD Primary Care Provider +1 [phone] Encounter Details Date Type Department Care Team (Late st Contact Info) Description 04/27/2007 Orders Only [facility] Primary Care - [address] [place] [address] Jimmy Balderas MD NO ADDRESS ON FILE Social History Tobacco Use Types Packs/Day Years Used Date Smoking Tobacco: Never Assessed Comments Unknown Sex and Gender Information Value Date Recorded Sex Assigned at Not on file Legal Sex Female 4:28 AM BILLING ASSISTANT Gender Identity Not on file Sexual Orientation Not on file documented as of this encounter Progress Notes * Jimmy Balderas MD - 04/18/2008 12:59 PM CDT WEIGHT: 159lbs BLOOD PRESSURE: 118/72 Right Arm Sitting TEMPERATURE: 98.1Â°f Oral PULSE: 68 Right Radial, Regular RESPIRATIONS: 16 NURSE NAME: Ashley Lance ALLERGIES: Allergies are as listed. MEDICATIONS: RN/MA reviewed medications. CHIEF COMPLAINT She is here for physical examination. She has done very well in the interim. She continues to lose weight. HISTORY: HISTORY: 311-DEPRESSION The depression has improved. Currently the patient is off all medication. CURRENT MEDICATION LIST: OGEN 0.625 ORAL TABLET 0.75 MG, 1 Every Morning SYNALAR EXTERNAL SOLUTION 0.01 %, apply bid ROS: GENERAL: HAS LOST WEIGHT. ENT: No hearing loss, epistaxis, hoarseness or dysphagia. No sinus congestion.. ?wax in ears? ENDOCRINE: No heat or cold intolerance, no excessive thirst. CARDIAC: No chest pain, palpitations, orthopnea, dyspnea on exertion, or paroxysmal nocturnal dyspnea. RESPIRATORY: No dyspnea, cough, hemoptysis or wheezing. : No frequency, urgency, hematuria or dysuria. vulvar itching GI: HAS BLOATING. This is post-prandial. No diarrhea. It is not related to any particular food. PSYCHIATRIC: . No new issues. She is convinced her weight loss is because she went off her psychiatric medications. She has done well without difficulty in this area. 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 DIET: Follows no specific diet. PHYSICAL EXAMINATION: CONSTITUTIONAL: GENERAL APPEARANCE: Healthy appearing patient in no distress. NECK/THYROID: Trachea midline. No thyroid enlargement, tenderness, or mass. No supraclavicular or cervical adenopathy. RESPIRATORY: Clear to auscultation and percussion. Normal respiratory effort. CARDIOVASCULAR: CARDIAC: Regular rhythm. No murmurs, rubs, or gallops. ARTERIAL: No aortic bruits. EDEMA/VARICOSITIES OF EXTREMITIES: No edema or varicosities. BREAST/CHEST: Breasts without tenderness, discharge or masses. No axillary adenopathy. GASTROINTESTINAL: ABDOMEN: Soft, non-tender, without masses. Bowel sounds active. LIVER/SPLEEN/KIDNEY: No hepatosplenomegaly, tenderness or nodularity. Kidneys not palpable. GENITOURINARY: EXTERNAL/VAGINAL: external labial irritation on right URETHRA: No masses, tenderness or scarring. BLADDER: Without fullness, masses or tenderness. CERVIX: ABSENT. UTERUS: ABSENT. ADNEXA/PARAMETRIA: No masses, organomegaly or local guarding. MUSCULOSKELETAL EXAM: EXTREMITIES: BILATERAL LOWER EXTREMITIES: No misalignment or tenderness. Full range of motion. Normal stability,strength and tone. NEUROLOGIC: DEEP TENDON REFLEXES: Deep tendon reflexes 2+/4 and symmetrical. ASSESSMENT/PLAN: 696.1-PSORIASIS MEDICATIONS: Continue current medications. SYNALAR EXTERNAL SOLUTION 0.01 % MILLILITERS, apply bid, 30 Dispensed, 5 Fills, status: CONTINUED, 04/27/2007. V70.0-ROUTINE GENERAL MEDICAL EXAMINATION Overall she is doing well. She has benefited from weight reduction. We talked about bone density. She is up-to-date with colonoscopy and she had a mammogram earlier today. LAB ORDERS: Order number: [id number] Test Ordered: LIPID PANEL 1078 Order number: [id number] Test Ordered: GLUCOSE LEVEL 1111 Order number: [id number] Test Ordered: GLUCOSE 483 Order number: [id number] Test Ordered: LIPID PANEL 7600 627.2-MENOPAUSAL AND POSTMENOPAUSAL DISORDERS Post-menopausal state. Continue hormones and do a bone density. MEDICATIONS: OGEN 0.625 ORAL TABLET 0.75 MG, 1 Every Morning, 30 Dispensed, 11 Fills, status: CONTINUED, 04/27/2007. LAB ORDERS: Order number: [id number] Test Ordered: BONE DENSITY (HIP & SPINE) HEALTH MAINTENANCE: LAST BREAST EXAM DATE: march 2007. LAST PAP DATE: 2005. LAST MAMMOGRAM DATE: march 2007. DISCUSSED SMOKING: no. LAST TD: unknown LAST TD: unknown SUBSTANCE ABUSE DISCUSSED: no. INJURY PREVENTION DISCUSSED: yes. DIET AND EXERCISE DISCUSSED: some. ADVANCED DIRECTIVES DISCUSSED: yes. LAST DATE COLONOSCOPY: 2005. LAST DATE FOBT: no. LAST BONE DENSITY DATE: no. LAST FLU VACCINE:sep 2006 LAST FLU VACCINE:2006 LAST PNEUMOCOCCAL:never Electronically Signed by: Jimmy Balderas MD on Saturday, April 28, 2007 documented in this encounter Plan of Treatment Upcoming Encounters Date Type Department Care Team (Late st Contact Info) Description 07/15/2025 1:00 PM CDT Office Visit [facility] Oncology and Hematology [facility] [address] [place] [address] Kimberly Naranjo MD [address] [place] [address] documented as of this encounter Visit Diagnoses Not on filedocumented in this encounter Additional Health Concerns Infection Onset Date Last Indicated Resolved Time R/O C. diff 07/03/2024 07/03/2024 07/04/2024 11:3 0 AM CDT documented as of this encounter Care Teams Business Manager [employer] Relationship Specialty Start Date End Date Sandor Romero MD [address] [place] [address] PCP - General Family Practice 06/28/24 documented as of this encounter
--- OUTSIDE RECORDS SUMMARY | 2025-04-09 11:06 | XMS_ITS | Encounter Summary ---
Author Organization [facility] Address [address] [place] [address] Care Team Providers Care Dining Room Tables Set Up Attendant Name Role Phone Sandor Romero MD Primary Care Provider [phone] Encounter Details Date Type Department Care Team (Late st Contact Info) Description 07/04/2000 Outpatient Historical [facility] Primary Care - [address] [place] [address] Jimmy Balderas MD NO ADDRESS ON FILE Social History Tobacco Use Types Packs/Day Years Used Date Smoking Tobacco: Never Assessed Comments Unknown Sex and Gender Information Value Date Recorded Sex Assigned at Not on file Legal Sex Female 4:28 AM SPORTS MEDICINE COORDINATOR Gender Identity Not on file Sexual Orientation Not on file documented as of this encounter Plan of Treatment Upcoming Encounters Date Type Department Care Team (Late st Contact Info) Description 07/15/2025 1:00 PM CDT Office Visit [facility] Oncology and Hematology [facility] [address] [place] [address] Kimberly Naranjo MD [address] [place] [address] documented as of this encounter Visit Diagnoses Not on filedocumented in this encounter Additional Health Concerns Infection Onset Date Last Indicated Resolved Time R/O C. diff 07/03/2024 07/03/2024 07/04/2024 11:3 0 AM CDT documented as of this encounter Care Teams Dining Room Tables Set Up Attendant Relationship Specialty Start Date End Date Sandor Romero MD [address] [place] [address] PCP - General Family Practice 06/28/24 documented as of this encounter
--- OUTSIDE RECORDS SUMMARY | 2025-04-09 11:06 | XMS_ITS | Encounter Summary ---
Author Organization [facility] Address 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 Gender Identity Not on file Sexual Orientation Not on file documented as of this encounter Plan of Treatment Upcoming Encounters Date Type Department Care Team (Late st Contact Info) Description 07/15/2025 1:00 PM CDT Office Visit [facility] Oncology and Hematology [facility] [address] [place] [address] Kimberly Naranjo MD [address] [place] [address] documented as of this encounter Visit Diagnoses Not on filedocumented in this encounter Additional Health Concerns Infection Onset Date Last Indicated Resolved Time R/O C. diff 07/03/2024 07/03/2024 07/04/2024 11:3 0 AM CDT documented as of this encounter Care Teams Precision Layout Worker Relationship Specialty Start Date End Date [place] [address] PCP - General Family Practice 06/28/24 documented as of this encounter
--- OUTSIDE RECORDS SUMMARY | 2025-04-09 11:06 | XMS_ITS | Encounter Summary ---
Author Organization [facility] Address 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 Gender Identity Not on file Sexual Orientation Not on file documented as of this encounter Plan of Treatment Upcoming Encounters Date Type Department Care Team (Late st Contact Info) Description 07/15/2025 1:00 PM CDT Office Visit [facility] Oncology and Hematology [facility] [address] [place] [address] Kimberly Naranjo MD [address] [place] [address] documented as of this encounter Visit Diagnoses Not on filedocumented in this encounter Additional Health Concerns Infection Onset Date Last Indicated Resolved Time R/O C. diff 07/03/2024 07/03/2024 07/04/2024 11:3 0 AM CDT documented as of this encounter Care Teams Business Asst Relationship Specialty Start Date End Date Sandor Romero MD [address] [place] [address] PCP - General Family Practice 06/28/24 documented as of this encounter
--- OUTSIDE RECORDS SUMMARY | 2025-04-09 11:06 | XMS_ITS | Continuity of Care Document ---
Author Organization [facility] Address [address] [place] [address] Phone Care Team Providers Care Currency Machine Operator Name Role Phone Kevin NOEL, Tatianna Unavailable Unavai lable Allergies, Adverse Reactions, Alerts Substance Reaction Status Criticality codeine Unknown Active No Information Medications Medication Instructions Dosage Effective Dates (start - stop) Status Comments Savannah 5 mg-325 mg tablet take 1 tablet by oral route every 6 hours as needed for pain - Active Tylenol Extra Strength 500 mg tablet take 2 tablet by oral route every 6 hours as needed 1000 MG - Active Vistaril 25 mg capsule take 1 Capsule by oral route every 6 hours as needed 25 MG - Active OGEN (unknown strength) take 1 tablet by oral route every day cyclically, 3 weeks on and 1 week off Not Available - Active Procedures Procedure Date POSTOP FOLLOW-UP VISIT OFFICE/OUTPATIENT VISIT EST POSTOP FOLLOW-UP VISIT POSTOP FOLLOW-UP VISIT POSTOP FOLLOW-UP VISIT POSTOP FOLLOW-UP VISIT OFFICE CONSULTATION Advance Directives Directive Yes / No Effective Date File Name Resuscitation Not Answered N/A N/A Life Support Not Answered N/A N/A Intubation Not Answered N/A N/A Antibiotics Not Answered N/A N/A IV Fluid Support Not Answered N/A N/A Tube Feed Not Answered N/A N/A Other Directive N/A N/A WARNING:The information contained in this section is historical and is provided for information only and does not constitute a legal document or any assurance that the information is still accurate. Please verify the information with the donis of the legal document before using it for clinical purposes. Encounters Encounter Description Practice Location Reason(s) For Visit Diagnoses Date Provider Providers Copied on Encounter [facility], [address] [place] [address], [address], [place] tel:[phone] [facility] Orthoped[facility] LT ankle (chief complaint) Achilles tendinitisPa inful orthopaedic hardware 4 Kevin Campuzano. [address] [facility], [place], [place], [id number]. tel:[phone] OFFICE/OUTPAT IENT VISIT EST [facility], [address] [place] [address], [place], [address], [place] tel:[phone] [facility]olar -closed 4 Kevin Campuzano. [address] [address], [place], [place], [id number]. tel:[phone] [facility], [address] [place] [address], [address], [place] tel:[phone] [facility] trimalleolar -closed 4 Herlinda Garcia. [address] [place], [place], [id number]. tel:[phone] [facility], [address] [place] [address], [address], [place] tel:[phone] [facility] Orthoped[facility] Fx trimalleolar -closed 4 Herlinda Garcia. [address] [place], [place], [id number]. tel:[phone] [facility], [address] [place] [address], [address], [place] tel:[phone] [facility] Orthoped[facility] Fx trimalleolar -closedBiima lleolar fracture, closed 4 Kevin Campuzano. [address] [facility] [address] [address] [facility], [place], [place], [id number]. tel:[phone] [facility], [address], [place], [address], [place] tel:[phone] [facility] Fx trimalleolar -closed 4 Kevin Campuzano. [address], [place], [place], [id number]. tel:[phone] OFFICE CONSULTATION [facility], [address], [place], [address], [place] tel:[phone] [facility] Biimalleolar fracture, closed 4 Herlinda Garcia. [address], [place], [place], [id number]. tel:[phone] Referring Provider: [address], [place], [address]. tel:[phone] Family History Family Member Type Diagnosis Age At Onset No Information Payers Payer name Insurance type Covered constitution party ID Authoriza tion(s) No Information Social History Type Description Quantity Date Captured Comments Alcohol Use Details Unknown Caffeine Use Details Unknown Tobacco Use Status No Information Smoking Status Former smoker Sex Female Chief Complaint And Reason For Visit From encounter dated '05/03/2014 13:45'. LT ankle (chief complaint) Reason For Referral Reason For Referral No Information Plan Of Treatment Date Type Action Status Referral Ordered: RADEX ANKLE COMPL MINIMUM 3 VIEWS LT ordered History Of Present Illness Encounter Date Complaint History Of Prese nt Illness No Information Functional Status Date Functional Assessmen t No Information Instructions Date Instruction Additional Infor mation Protective activity Activity as tolerated Weight bearing status: weight be ar as tolerated Activity as tolerated Wear brace as instructed Wear brace as instructed Activity as tolerated Elevate limb above level of hear t Patient was instructed on cast c are Weight bearing status: non weigh t bearing Weight bearing status: non weigh t bearing Assessments Type Assessment Date assessment Achilles tendinitis assessment Painful orthopaedic hardware Apr Patient Care Teams Name Effective Dates (start - stop) Status Members No Information
--- OUTSIDE RECORDS SUMMARY | 2025-04-09 11:06 | XMS_ITS | Encounter Summary ---
Author Organization [facility] Address 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 Gender Identity Not on file Sexual Orientation Not on file documented as of this encounter Plan of Treatment Upcoming Encounters Date Type Department Care Team (Late st Contact Info) Description 07/15/2025 1:00 PM CDT Office Visit [facility] Oncology and Hematology [facility] [address] [place] [address] Kimberly Naranjo MD [address] [place] [address] documented as of this encounter Visit Diagnoses Not on filedocumented in this encounter Additional Health Concerns Infection Onset Date Last Indicated Resolved Time R/O C. diff 07/03/2024 07/03/2024 07/04/2024 11:3 0 AM CDT documented as of this encounter Care Teams Field Ironworker Relationship Specialty Start Date End Date Sandor Romero MD [address] [place] [address] PCP - General Family Practice 06/28/24 documented as of this encounter
--- OUTSIDE RECORDS SUMMARY | 2025-04-09 11:06 | XMS_ITS | Encounter Summary ---
Author Organization [facility] Address 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 Gender Identity Not on file Sexual Orientation Not on file documented as of this encounter Plan of Treatment Upcoming Encounters Date Type Department Care Team (Late st Contact Info) Description 07/15/2025 1:00 PM CDT Office Visit [facility] Oncology and Hematology [facility] [address] [place] [address] Kimberly Naranjo MD [address] [place] [address] documented as of this encounter Visit Diagnoses Diagnosis Breast replaced by other means- Primary documented in this encounter Additional Health Concerns Infection Onset Date Last Indicated Resolved Time R/O C. diff 07/03/2024 07/03/2024 07/04/2024 11:3 0 AM CDT documented as of this encounter Care Teams Project Asst Relationship Specialty Start Date End Date Sandor Romero MD [address] [place] [address] PCP - General Family Practice 06/28/24 documented as of this encounter
--- OUTSIDE RECORDS SUMMARY | 2025-04-09 11:06 | XMS_ITS | Encounter Summary ---
Author Organization [facility] Address 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 Gender Identity Not on file Sexual Orientation Not on file documented as of this encounter Plan of Treatment Upcoming Encounters Date Type Department Care Team (Late st Contact Info) Description 07/15/2025 1:00 PM CDT Office Visit [facility] Oncology and Hematology [facility] [address] [place] [address] Kimberly Naranjo MD [address] [place] [address] documented as of this encounter Visit Diagnoses Diagnosis Symptomatic menopausal or female climacteric states- Primary documented in this encounter Additional Health Concerns Infection Onset Date Last Indicated Resolved Time R/O C. diff 07/03/2024 07/03/2024 07/04/2024 11:3 0 AM CDT documented as of this encounter Care Teams Spindle Maker Relationship Specialty Start Date End Date Sandor Romero MD [address] [place] [address] PCP - General Family Practice 06/28/24 documented as of this encounter
--- OUTSIDE RECORDS SUMMARY | 2025-04-09 11:06 | XMS_ITS | Encounter Summary ---
Author Organization [facility] Address 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 Gender Identity Not on file Sexual Orientation Not on file documented as of this encounter Plan of Treatment Upcoming Encounters Date Type Department Care Team (Late st Contact Info) Description 07/15/2025 1:00 PM CDT Office Visit [facility] Oncology and Hematology [facility] [address] [place] [address] Kimberly Naranjo MD [address] [place] [address] documented as of this encounter Visit Diagnoses Not on filedocumented in this encounter Additional Health Concerns Infection Onset Date Last Indicated Resolved Time R/O C. diff 07/03/2024 07/03/2024 07/04/2024 11:3 0 AM CDT documented as of this encounter Care Teams Registered Nurse Nursery Relationship Specialty Start Date End Date Sandor Romero MD [address] [place] [address] PCP - General Family Practice 06/28/24 documented as of this encounter
--- OUTSIDE RECORDS SUMMARY | 2025-04-09 11:06 | XMS_ITS | Encounter Summary ---
Author Organization [facility] Address [address] [place] [address] Care Team Providers Care Rubber Moulding Machine Operator Name Role Phone Sandor Romero MD Primary Care Provider +1 [phone] Encounter Details Date Type Department Care Team (Late Contact Info) Description 02/28/2020 Chart Note [facility] Rad[facility] Therapy [address] [place] [address] [place] [address] [place] [address] Social History Tobacco Use Types Packs/Day Years Used Date Smoking Tobacco: Never Smokeless Tobacco: Never Alcohol Use Standard Drinks/Week Comments No 0 (1 standard drink = 0.6 oz pur e alcohol) Comments No Sex and Gender Information Value Date Recorded Sex Assigned at Not on file 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 No / Unsure 02/29/2020 8:24 AM CDT documented as of this encounter Plan of Treatment Upcoming Encounters Date Type Department Care Team (Late Contact Info) Description 07/15/2025 1:00 PM CDT Office Visit [facility] Oncology and Hematology [facility] [address] [place] [address] Kimberly Naranjo MD [address] [place] [address] documented as of this encounter Visit Diagnoses Not on filedocumented in this encounter Additional Health Concerns Infection Onset Date Last Indicated Resolved Time R/O C. diff 07/03/2024 07/03/2024 07/04/2024 11:3 0 AM CDT Assessment Noted Time PHQ-9 Depression Total Score: 1 08/21/20 19 10:30 AM CDT documented as of this encounter Care Teams Rubber Moulding Machine Operator Relationship Specialty Start Date End Date Sandor Romero MD [address] [place] [address] PCP - General Family Practice 06/28/24 documented as of this encounter
--- OUTSIDE RECORDS SUMMARY | 2025-04-09 11:06 | XMS_ITS | Encounter Summary ---
Author Organization [facility] Address 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 Gender Identity Not on file Sexual Orientation Not on file documented as of this encounter Last Filed Vital Signs Vital Sign Reading Time Taken Comments Blood Pressure 110/80 11/04/2006 4:00 PM VEHICLE DYNAMICS ENGINEER Pulse - - Temperature 36.7 C (98.1 F) 11/04/2006 4:00 PM VEHICLE DYNAMICS ENGINEER Respiratory Rate - - Oxygen Saturation - - Inhaled Oxygen Concentration - - Weight 75.8 kg (167 lb) 11/04/2006 4:00 PM VEHICLE DYNAMICS ENGINEER Height - - Body Mass Index - - documented in this encounter Plan of Treatment Upcoming Encounters Date Type Department Care Team (Late st Contact Info) Description 07/15/2025 1:00 PM CDT Office Visit [facility] Oncology and Hematology [facility] [address] [place] [address] Kimberly Naranjo MD [address] [place] [address] documented as of this encounter Visit Diagnoses Not on filedocumented in this encounter Additional Health Concerns Infection Onset Date Last Indicated Resolved Time R/O C. diff 07/03/2024 07/03/2024 07/04/2024 11:3 0 AM CDT documented as of this encounter Care Teams Director Radio Relationship Specialty Start Date End Date Sandor Romero MD [address] [place] [address] PCP - General Family Practice 06/28/24 documented as of this encounter
--- OUTSIDE RECORDS SUMMARY | 2025-04-09 11:06 | XMS_ITS | Encounter Summary ---
Author Organization [facility] Address [address] [place] [address] Care Team Providers Care Electric Meter Installer Helper Name Role Phone Sandor Romero MD Primary Care Provider +1 -[phone] Encounter Details Date Type Department Care Team (Late st Contact Info) Description 02/19/2000 Outpatient Historical [facility] Primary Care - 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 Gender Identity Not on file Sexual Orientation Not on file documented as of this encounter Plan of Treatment Upcoming Encounters Date Type Department Care Team (Late st Contact Info) Description 07/15/2025 1:00 PM CDT Office Visit [facility] Oncology and Hematology [facility] [address] [place] [address] Kimberly Naranjo MD [address] [place] [address] documented as of this encounter Visit Diagnoses Not on filedocumented in this encounter Additional Health Concerns Infection Onset Date Last Indicated Resolved Time R/O C. diff 07/03/2024 07/03/2024 07/04/2024 11:3 0 AM CDT documented as of this encounter Care Teams Electric Meter Installer Helper Relationship Specialty Start Date End Date Sandor Romero MD [address] [place] [phone] PCP - General Family Practice 06/28/24 documented as of this encounter
--- OUTSIDE RECORDS SUMMARY | 2025-04-09 11:06 | XMS_ITS | Encounter Summary ---
Author Organization [facility] Address [address] [place] [address] Care Team Providers Care Technical Staff Engineer Name Role Phone Sandor Romero MD Primary Care Provider +1 [phone] Encounter Details Date Type Department Care Team (Late st Contact Info) Description 08/15/2000 Outpatient Historical [facility] Primary Care - [address] [place] [address] Jimmy Balderas MD NO ADDRESS ON FILE Social History Tobacco Use Types Packs/Day Years Used Date Smoking Tobacco: Never Assessed Comments Unknown Sex and Gender Information Value Date Recorded Sex Assigned at Not on file Legal Sex Female 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 Gender Identity Not on file Sexual Orientation Not on file documented as of this encounter Plan of Treatment Upcoming Encounters Date Type Department Care Team (Late st Contact Info) Description 07/15/2025 1:00 PM CDT Office Visit [facility] Oncology and Hematology [facility] [address] [place] [address] Kimberly Naranjo MD [address] [place] [address] documented as of this encounter Visit Diagnoses Not on filedocumented in this encounter Additional Health Concerns Infection Onset Date Last Indicated Resolved Time R/O C. diff 07/03/2024 07/03/2024 07/04/2024 11:3 0 AM CDT documented as of this encounter Care Teams Technical Staff Engineer Relationship Specialty Start Date End Date Sandor Romero MD [address] [place] [address] PCP - General Family Practice 06/28/24 documented as of this encounter
--- OUTSIDE RECORDS SUMMARY | 2025-04-09 11:06 | XMS_ITS | Encounter Summary ---
Author Organization [facility] Address [address] [place] [address] Care Team Providers Care Industrial Controller Name Role Phone Sandor Romero MD Primary Care Provider +1 [phone] Encounter Details Date Type Department Care Team (Latest Contact Info) Description 05/26/2009 Outpatient Historical [facility] Massimo Balderas MD NO ADDRESS ON FILE Other Screening Mammogram Social History Tobacco Use Types Packs/Day Years Used Date Smoking Tobacco: Never Alcohol Use Standard Drinks/Week Comments Yes 0 (1 standard drink = 0.6 oz pur e alcohol) Comments No Sex and Gender Information Value Date Recorded Sex Assigned at Not on file 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 Gender Identity Not on file Sexual Orientation Not on file documented as of this encounter Plan of Treatment Upcoming Encounters Date Type Department Care Team (Late st Contact Info) Description 07/15/2025 1:00 PM CDT Office Visit [facility] Oncology and Hematology [facility] [address] [place] [address] Kimberly Naranjo MD [address] [place] [address] documented as of this encounter Procedures Procedure Name Priority Date/Time Associated Diagnosis Comments MAMMO SCREEN BILAT W OR WO CAD Routine 05/26/2009 1:00 PM CDT documented in this encounter Results * MAMMO DIGITAL SCREEN BILAT (05/26/2009 1:00 PM CDT) Anatomical Region Laterality Modality Breast Bilateral Other 05/26/2009 1:00 PM CDT Narrative 05/27/2009 4:25 PM CDT [facility] [address] [place], [place] [address] Admit Date: 05/26/2009 YOLANDAMADELINE Sex: F Admit Prov: MASSIMO BALDERAS Date: 1950 Primary Care Prov: MASSIMO BALDERAS; CMRN: [id number] MASSIMO BALDERAS SSN: [id number] Room: [facility] Ordering Prov: MASSIMO BALDERAS Accession Number: [id number] Interpretation Bilateral screening digital mammograms with computer assisted diagnosis History: Annual screening study. In addition to standard two-view screening exam, implant displaced views were obtained of both breasts in 2 projections. Comparison is made to 02/10/05. The images were reviewed using the CAD system. The breast parenchyma has scattered fibroglandular densities. No new dominant masses, suspicious calcifications or areas of parenchymal asymmetry or distortion are identified. Bilateral breast implants are stable Impression: Stable screening mammogram Recommend routine followup Overall assessment: BIRADS category 1 - Negative Assessment BIRADS: 1-Negative Recommendation: Normal interval follow-up Dictated by: MIRIAM RODRIGUEZ Electronically signed by: MIRIAM RODRIGUEZ 05/27/2009 16:25 Transcribed: 05/27/2009 09:11 AMK Procedure Note Miriam Rodriguez - 05/27/2009 [facility] [address] [place], [place] [address] Admit Date: 05/26/2009 MADELINE GUERRERO Sex: F Admit Prov: MASSIMO BALDERAS Date: 1950 Primary Care Prov: MASSIMO BALDERAS; CMRN: [id number] MASSIMO BALDERAS SSN: [id number] Room: [facility] Ordering Prov: MASSIMO BALDERAS Interpretation Bilateral screening digital mammograms with computer assisteddiagnosis History: Annual screening study. In addition to standard two-view screening exam, implant displacedviews were obtained of both breasts in 2 projections. Comparison is made to 02/10/05. The images were reviewed using [employer] system. The breast parenchyma has scattered fibroglandulardensities. No new dominant masses, suspicious calcifications or areas ofparenchymal asymmetry or distortion are identified. Bilateral breast implantsare stable Impression: Stable screening mammogram Recommend routine followup Overall assessment: BIRADS category 1 - Negative Assessment BIRADS: 1-Negative Recommendation: Normal interval follow-up Dictated by: MIRIAM RODRIGUEZ Electronically signed by: MIRIAM RODRIGUEZ 05/27/2009 16:25 Transcribed: 05/27/2009 09:11 AMK Massimo Baledras MD MAMMO ORDERABLES Final Result documented in this encounter Visit Diagnoses Diagnosis Other screening mammogram documented in this encounter Additional Health Concerns Infection Onset Date Last Indicated Resolved Time R/O C. diff 07/03/2024 07/03/2024 07/04/2024 11:3 0 AM CDT documented as of this encounter Care Teams Industrial Controller Relationship Specialty Start Date End Date Sandor Romero MD [address] [place] [address] PCP - General Family Practice 06/28/24 documented as of this encounter
--- OUTSIDE RECORDS SUMMARY | 2025-04-09 11:06 | XMS_ITS | Encounter Summary ---
Author Organization [facility] Address [address] [place] [address] Care Team Providers Care Production Consultant Name Role Phone Sandor Romero MD Primary Care Provider +1 -[phone] Encounter Details Date Type Department Care Team (Late st Contact Info) Description 10/05/2006 Orders Only [facility] Primary Care - [address] [place] [address] Jimmy Balderas MD NO ADDRESS ON FILE Social History Tobacco Use Types Packs/Day Years Used Date Smoking Tobacco: Never Assessed Comments Unknown Sex and Gender Information Value Date Recorded Sex Assigned at Not on file Legal Sex Female 4:28 AM DIRECTOR 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 Gender Identity Not on file Sexual Orientation Not on file documented as of this encounter Plan of Treatment Upcoming Encounters Date Type Department Care Team (Late st Contact Info) Description 07/15/2025 1:00 PM CDT Office Visit [facility] Oncology and Hematology [facility] [address] [place] [address] Kimberly Naranjo MD [address] [place] [address] documented as of this encounter Visit Diagnoses Not on filedocumented in this encounter Additional Health Concerns Infection Onset Date Last Indicated Resolved Time R/O C. diff 07/03/2024 07/03/2024 07/04/2024 11:3 0 AM CDT documented as of this encounter Care Teams Production Consultant Relationship Specialty Start Date End Date Sandor Romero MD [address] [place] [address] PCP - General Family Practice 06/28/24 documented as of this encounter
--- OUTSIDE RECORDS SUMMARY | 2025-04-09 11:06 | XMS_ITS | Encounter Summary ---
Author Organization [facility] Address 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 LAST VISIT: 05-05-06 PCP: Andrey. ALTERNATIVE PHONE NUMBER: [phone] WHO CALLED: Patient called. CURRENT ALLERGY LIST: CODEINE PROBLEMS: PAIN: Patient complains of back pain. The onset was approximately 1 week ago. spasms, using heat and ibuprofen. no injury. low back. catches and has sharp pains. SECTION 1: REQUESTED ACTION 11/04/06 at 09:15 am: APPOINTMENT REQUEST: Patient wants an appointment today with PCP only, no appointments available. ............dina SECTION 2: REQUESTED ACTION: 11/04/06 at 01:05 pm pt called back having a lot of spasms.......dina [facility]43 [facility] Spoke with patient 11/04/06 at 02:43 pm. Booked appointment: 11/04 4pm........dina Electronically Signed by: Dina Padilla on Saturday, November 04, 2006 * Jimmy Balderas MD - 09/11/2008 2:37 AM CDT TEMPERATURE: 98.1Â°f Oral WEIGHT: 167lbs BLOOD PRESSURE: 110/80 Right Arm Sitting NURSE NAME: Lily White K ALLERGIES: Allergies are as listed. MEDICATIONS: Medication list current. CHIEF COMPLAINT Patient complains of back pain. HISTORY: HISTORY: HISTORY OF PRESENT ILLNESS: BACK PAIN: The back pain began approximately 1 week ago. The location of the pain is in the lower back bilaterally. The pain does not radiate. The quality is dull. The severity is moderate. The duration last 1-2 minutes with each episode. Frequency of pain is variable. The symptoms have been unchanged. There are no clearly defined precipitating factors for the pain.other than movement. No clear provoking factor. PHYSICAL EXAMINATION: GASTROINTESTINAL: ABDOMEN: Soft, non-tender, without masses. Bowel sounds active. MUSCULOSKELETAL EXAM: SPINE/RIBS/PELVIS: No kyphosis, BILATERAL MIDDLE PARASPINAL MUSCLE TENDERNESS, full range of motion, MODERATELY REDUCED ROTATION BILATERALLY. NEUROLOGIC: DEEP TENDON REFLEXES: Deep tendon reflexes 2+/4 and symmetrical. Straight leg raising test within normal limits. ASSESSMENT/PLAN: 847.9-BACK SPRAIN UNSPECIFIED treat conservatively with rest, heat muscle relaxant and midl analgesic MEDICATIONS: FLEXERIL ORAL TABLET 10 MG, 1 Three Times A Day, As Needed, 30 Dispensed, status: NEW PRESCRIPTION,11/04/2006. TRAMADOL HCL ORAL TABLET 50 MG, 1 Every Four Hours, As Needed, 25 Dispensed, status: NEW PRESCRIPTION, 11/04/2006. RETURN VISIT : Instructed to call if not improving. Electronically Signed by: Jimmy Balderas MD on Sunday, December 31, 2006 documented in this encounter Plan of Treatment Upcoming Encounters Date Type Department Care Team (Late st Contact Info) Description 07/15/2025 1:00 PM CDT Office Visit [facility] Oncology and Hematology [facility] [address] [place] [address] Min, Kimberly Cosby MD [address] [place] [address] documented as of this encounter Visit Diagnoses Not on filedocumented in this encounter Additional Health Concerns Infection Onset Date Last Indicated Resolved Time R/O C. diff 07/03/2024 07/03/2024 07/04/2024 11:3 0 AM CDT documented as of this encounter Care Teams Corset Maker Relationship Specialty Start Date End Date Sandor Romero MD [address] [place] [address] PCP - General Family Practice 06/28/24 documented as of this encounter
--- OUTSIDE RECORDS SUMMARY | 2025-04-09 11:06 | XMS_ITS | Encounter Summary ---
Author Organization [facility] Address 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 Gender Identity Not on file Sexual Orientation Not on file documented as of this encounter Plan of Treatment Upcoming Encounters Date Type Department Care Team (Late st Contact Info) Description 07/15/2025 1:00 PM CDT Office Visit [facility] Oncology and Hematology [facility] [address] [place] [address] Kimberly Naranjo MD [address] [place] [address] documented as of this encounter Visit Diagnoses Not on filedocumented in this encounter Additional Health Concerns Infection Onset Date Last Indicated Resolved Time R/O C. diff 07/03/2024 07/03/2024 07/04/2024 11:3 0 AM CDT documented as of this encounter Care Teams Semaphore Operator Relationship Specialty Start Date End Date Sandor Romero MD [address] [place] [address] PCP - General Family Practice 06/28/24 documented as of this encounter
--- OUTSIDE RECORDS SUMMARY | 2025-04-09 11:06 | XMS_ITS | Encounter Summary ---
Author Organization [facility] Address [address] [place] [address] Care Team Providers Care Packerhead Machine Operator Name Role Phone Sandor Romero MD Primary Care Provider +1 -[phone] Encounter Details Date Type Department Care Team (Latest Contact Info) Description 05/01/2009 Outpatient Historical [facility] [address] Jimmy Balderas MD NO ADDRESS ON FILE Other and Unspecified Hyperlipidemia Social History Tobacco Use Types Packs/Day Years Used Date Smoking Tobacco: Never Alcohol Use Standard Drinks/Week Comments Yes 0 (1 standard drink = 0.6 oz pur e alcohol) Comments No Sex and Gender Information Value Date Recorded Sex Assigned at Not on file 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 Gender Identity Not on file Sexual Orientation Not on file documented as of this encounter Plan of Treatment Upcoming Encounters Date Type Department Care Team (Late st Contact Info) Description 07/15/2025 1:00 PM CDT Office Visit [place] Oncology and Hematology [facility] [address] [place] [address] Kimberly Naranjo MD [address] [place] [address] documented as of this encounter Visit Diagnoses Diagnosis Other and unspecified hyperlipidemia documented in this encounter Additional Health Concerns Infection Onset Date Last Indicated Resolved Time R/O C. diff 07/03/2024 07/03/2024 07/04/2024 11:3 0 AM CDT documented as of this encounter Care Teams Packerhead Machine Operator Relationship Specialty Start Date End Date Sandor Romero MD [address] [place] [address] PCP - General Family Practice 06/28/24 documented as of this encounter
--- OUTSIDE RECORDS SUMMARY | 2025-04-09 11:06 | XMS_ITS | Encounter Summary ---
Author Organization [facility] Address 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 Gender Identity Not on file Sexual Orientation Not on file documented as of this encounter Plan of Treatment Upcoming Encounters Date Type Department Care Team (Late st Contact Info) Description 07/15/2025 1:00 PM CDT Office Visit [facility] Oncology and Hematology [facility] [address] [place] [address] Kimberly Naranjo MD [address] [place] [address] documented as of this encounter Visit Diagnoses Not on filedocumented in this encounter Additional Health Concerns Infection Onset Date Last Indicated Resolved Time R/O C. diff 07/03/2024 07/03/2024 07/04/2024 11:3 0 AM CDT documented as of this encounter Care Teams Pi/Senior Research Associate Relationship Specialty Start Date End Date Sandor Romero MD [address] [place] [id number] PCP - General Family Practice 06/28/24 documented as of this encounter
--- OUTSIDE RECORDS SUMMARY | 2025-04-09 11:06 | XMS_ITS | Encounter Summary ---
Author Organization [facility] Address [address] [place] [address] Care Team Providers Care Kohinoor Operator Name Role Phone Sandor Romero MD Primary Care Provider [phone] Encounter Details Date Type Department Care Team (Latest Contact Info) Description 05/19/2009 Outpatient Historical [facility] Jimmy Balderas MD NO ADDRESS ON FILE Other Screening Mammogram Social History Tobacco Use Types Packs/Day Years Used Date Smoking Tobacco: Never Alcohol Use Standard Drinks/Week Comments Yes 0 (1 standard drink = 0.6 oz pur e alcohol) Comments No Sex and Gender Information Value Date Recorded Sex Assigned at Not on file 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 Gender Identity Not on file Sexual Orientation Not on file documented as of this encounter Plan of Treatment Upcoming Encounters Date Type Department Care Team (Late st Contact Info) Description 07/15/2025 1:00 PM CDT Office Visit [facility] Oncology and Hematology [facility] [address] [place] [address] Kimberly Naranjo MD [address] [place] [address] documented as of this encounter Visit Diagnoses Diagnosis Other screening mammogram documented in this encounter Additional Health Concerns Infection Onset Date Last Indicated Resolved Time R/O C. diff 07/03/2024 07/03/2024 07/04/2024 11:3 0 AM CDT documented as of this encounter Care Teams Kohinoor Operator Relationship Specialty Start Date End Date Sandor Romero MD [address] [place] [id number] PCP - General Family Practice 06/28/24 documented as of this encounter
--- OUTSIDE RECORDS SUMMARY | 2025-04-09 11:06 | XMS_ITS | Encounter Summary ---
Author Organization [facility] Address [address] [place] [address] Care Team Providers Care Vb Net Developer Name Role Phone Sandor Romero MD Primary Care Provider [phone] Encounter Details Date Type Department Care Team (Latest Contact Info) Description 05/16/2008 Outpatient Historical HIS [facility] Massimo Balderas MD NO ADDRESS ON FILE Other Screening Mammogram Social History Tobacco Use Types Packs/Day Years Used Date Smoking Tobacco: Never Alcohol Use Standard Drinks/Week Comments Yes 0 (1 standard drink = 0.6 oz pur e alcohol) Comments No Sex and Gender Information Value Date Recorded Sex Assigned at Not on file Legal Sex Female 4:28 AM DIRECTOR OF PROPERTY MANAGEMENT Gender Identity Not on file Sexual Orientation Not on file documented as of this encounter Plan of Treatment Upcoming Encounters Date Type Department Care Team (Late st Contact Info) Description 07/15/2025 1:00 PM CDT Office Visit [facility] Oncology and Hematology [facility] [address] [place] [address] Kimberly Naranjo MD [address] [place] [address] documented as of this encounter Procedures Procedure Name Priority Date/Time Associated Diagnosis Comments MAMMO SCREEN BILAT W OR WO CAD Routine 05/16/2008 11:20 AM CDT documented in this encounter Results * MAMMO DIGITAL SCREEN BILAT (05/16/2008 11:20 AM CDT) Anatomical Region Laterality Modality Breast Bilateral Other 05/16/2008 11:2 0 AM CDT Narrative 05/17/2008 12:54 PM CDT [facility] [place] [address] [place], [place] [address] Admit Date: 05/16/2008 MADELINE GUERRERO Sex: F Admit Prov: MASSIMO BALDERAS Date: 1950 Primary Care Prov: MASSIMO BALDERAS; CMRN: [id number] MASSIMO BALDERAS SSN: [id number] Room: [facility] Ordering Prov: MASSIMO BALDERAS Accession Number: [id number] Interpretation Bilateral full field digital screening mammograms with computer aided diagnosis 05/16/2008 History: Breast implants. Annual screening. Full and implant displaced views of both breasts were obtained using full field digital mammography. CAD was utilized. Comparison is made with previous studies dated March 2007, February 2006 and January 2005. Breast composition: Scattered fibroglandular densities. Findings: Irregularity of the subglandular silicone implants is identified bilaterally. This is stable when compared with previous examination. No new dominant masses, areas of asymmetry or suspicious clustered microcalcifications are identified within either breast. The CAD system detects no other significant abnormalities. Overall assessment: BI-RADS category 2. Benign findings. Recommendation: Annual mammography is recommended. Assessment BIRADS: 2-Benign finding Recommendation: Normal interval follow-up Dictated by: KATLIN LINDER Electronically signed by: KATLIN LINDER 05/17/2008 12:53 Transcribed: 05/17/2008 08:43 AMK Procedure Note Katlin Linder - 05/17/2008 [place] [address] [place], [place] [address] Admit Date: 05/16/2008 MADELINE GUERRERO Sex: F Admit Prov: MASSIMO BALDERAS Date: 1950 Primary Care Prov: MASSIMO BALDERAS; CMRN: [id number] MASSIMO BALDERAS SSN: [id number] Room: [facility] Ordering Prov: MASSIMO BALDERAS Interpretation Bilateral full field digital screening mammograms with computeraided diagnosis 05/16/2008 History: Breast implants. Annual screening. Full and implant displaced views of both breasts were obtained usingfull field digital mammography. CAD was utilized. Comparison is madewith previous studies dated March 2007, February 2006 and January 2005. Breast composition: Scattered fibroglandular densities. Findings: Irregularity of the subglandular silicone implants isidentified bilaterally. This is stable when compared with previous examination.No new dominant masses, areas of asymmetry or suspicious clustered microcalcifications are identified within either breast. The CADsystem detects no other significant abnormalities. Overall assessment: BI-RADS category 2. Benign findings. Recommendation: Annual mammography is recommended. Assessment BIRADS: 2-Benign finding Recommendation: Normal interval follow-up Dictated by: KATLIN LINDER Electronically signed by: KATLIN LINDER 05/17/2008 12:53 Transcribed: 05/17/2008 08:43 AMK Massimo Balderas MD MAMMO ORDERABLES Final Result documented in this encounter Visit Diagnoses Diagnosis Other screening mammogram documented in this encounter Additional Health Concerns Infection Onset Date Last Indicated Resolved Time R/O C. diff 07/03/2024 07/03/2024 07/04/2024 11:3 0 AM CDT documented as of this encounter Care Teams Vb Net Developer Relationship Specialty Start Date End Date Sandor Romero MD [address] [place] [phone] PCP - General Family Practice 06/28/24 documented as of this encounter
== END ==
PROVIDERS: PCP Family Medicine; Visit Provider Family Medicine
DX: M19.012 Primary osteoarthritis, left shoulder (principal); M41.84 Other forms of scoliosis, thoracic region; M19.072 Primary osteoarthritis, left ankle and foot; M43.02 Spondylolysis, cervical region; M43.04 Spondylolysis, thoracic region; Z98.890 Other specified postprocedural states
CPT/HCPCS: 73030; 73630

== ENCOUNTER 2025-10-15 09:48 | Outpatient (CLI) | payer MEDICARE, SELFPAY ==
[2025-10-15 11:20] LABS: Hematocrit 44.0 % (37.0-47.0); Hemoglobin 14.0 g/dL (12.0-15.0); Immature Granulocyte Percent A 0.7 % (0-0.5); Lymphocytes Absolute Auto 1.65 K/mm3 (0.9-3.2); Mean Corpuscular HGB Conc 31.8 g/dl (32-36); Mean Corpuscular Hemoglobin 29.7 pg (26-34); Mean Corpuscular Volume 93.2 fl (80-100); Nucleated Red Blood Cells Absolute Auto 0.000 K/mm3 (0.0-0.012); Nucleated Red Blood Cells Perc 0.0 % (0.0-0.2); Platelet Count Result 264 k/mm3 (150-375); Red Blood Count 4.72 M/mm3 (4.2-5.4); White Blood Count 7.7 K/mm3 (4.5-10.0)
[2025-10-15 12:06] LABS: Alanine Aminotransferase 43 U/L (6-35); Albumin Level 4.3 g/dL (3.5-5.1); Alkaline Phosphatase 125 U/L (38-126); Anion Gap 6 mmol/L (4-12); Aspartate Amino Transferase 52 U/L (14-36); Bilirubin,Total 0.4 mg/dL (0.2-1.3); Blood Urea Nitrogen 11 mg/dL (7-17); Calcium 9.2 mg/dL (8.4-10.2); Carbon Dioxide 29 mmol/L (22-30); Chloride 103 mmol/L (98-107); Cholesterol 171 mg/dL (0-200); Estimated Glomerular Filt Rate > 60; Glucose 78 mg/dL (65-110); HDL Direct 66 mg/dL; Potassium 4.0 mmol/L (3.4-5.0); Sodium 138 mmol/L (137-145); Total Protein 7.3 g/dL (6.3-8.2); Triglycerides 139 mg/dL (<150)
== END 2025-10-15 09:49 | disposition home or self-care (01) ==
LOC: ANHLAB 09:55
PROVIDERS: PCP Family Medicine; Visit Provider Family Medicine
DX: G47.00 Insomnia, unspecified (principal); F41.8 Other specified anxiety disorders; I10 Essential (primary) hypertension; M85.80 Other specified disorders of bone density and structure, unspecified site; R19.4 Change in bowel habit; K86.81 Exocrine pancreatic insufficiency; F32.9 Major depressive disorder, single episode, unspecified; E78.5 Hyperlipidemia, unspecified; Z00.00 Encounter for general adult medical examination without abnormal findings
CPT/HCPCS: 36415; 80053; 80061; 82306; 85025